=== PATIENT | male | born 1950 | race Caucasian/White ===

== ENCOUNTER 2017-02-05 11:42 | Inpatient (IN) | payer OTHER, MEDICARE ==
[~2017-02-05] VITALS: Ht 177.8 cm; Wt 91.0 kg
[2017-02-05] VITALS (18 sets, daily range): BP systolic 110–158; BP diastolic 56–103; PULSE 55–84; RESP 14–24; TEMP 97.8–98.9; O2SAT 96–100
[~2017-02-05 11:42] MED LIST: ATOR10 PO; BENZ100 PO; CARV3.125 PO; HYDRA25 PO; LASI20TA PO; METH500T3 PO; NORC10TA2 PO; PRAS10 PO; PREG75 PO; RAMI2.5 PO; ZOFR4TAB3 SL
--- NOTE | 2017-02-05 12:17 | PD ---
HPI . abnormal labs sent from PCP Chief Complaint: Abnormal Results Time Seen by Provider: 12:09 Travel History International Travel<30 days: No Contact w/Intl Traveler<30days: No Traveled to known affect area: No History of Present Illness HPI 66-year-old male with history of hypertension, hyperlipidemia and CAD with stents approximately one year ago sent to the ED by his primary care physician for abnormal labs. Patient is here complaining of shortness of breath and leg edema that has been present for several months. He also states that he has some abnormal labs, but is uncertain of what exactly those results were. He does report some weakness. He is a poor historian and has a very difficult time explaining what he is experiencing. On initial exam patient is pale. Upon further questioning he reports that he does have some dark colored stools. His last colonoscopy was when he was 50 years old. He has no other complaints. He is accompanied by his brother. PFSH Past Medical History Hx Anticoagulant Therapy: Yes Asthma: No Heart Rhythm Problems: No Cancer: No Cardiovascular Problems: Yes High Cholesterol: Yes Chest Pain: No Congestive Heart Failure: No COPD: No Diabetes: No Diminished Hearing: Yes Endocrine: No Glaucoma: No Genitourinary: No Hepatitis: No Hiatal Hernia: No Hypertension: Yes Immune Disorder: No Musculoskeletal: Yes (knee ankle) Neurologic: No Reproductive: No Respiratory: No Sleep Apnea: No Thyroid Disease: No Past Surgical History Appendectomy: Yes Pacemaker: No Other Surgery: Yes (right wrist sx) Social History Alcohol Use: Yes (BEER OCC) Tobacco Use: No Substance Use: No Allergies-Medications (Allergen,Severity, Reaction): Coded Allergies: No Known Allergies (Verified , 03/31/16) Reported Meds & Prescriptions Reported Meds & Active Scripts Active Lyrica (Pregabalin) 75 Mg Cap 75 Mg PO DAILY 30 Days Ramipril 2.5 Mg Cap 2.5 Mg PO DAILY Effient (Prasugrel) 10 Mg Tab 10 Mg PO DAILY Coreg 3.125 mg (Carvedilol) 3.125 Mg Tab 3.125 Mg PO BID Lipitor 10 mg tab (Atorvastatin) 10 Mg Tab 10 Mg PO HS Lasix (Furosemide) 20 Mg Tab 20 Mg PO DAILY 30 Days Tessalon Perles (Benzonatate) 100 Mg Cap 100 Mg PO TID PRN Zofran ODT (Ondansetron HCl) 4 Mg Tab 4 Mg SL Q6H PRN FOR NAUSEA/VOMITING Robaxin (Methocarbamol) 500 Mg Tab 500 Mg PO QID PRN Hydralazine HCl 25 Mg Tab 25 Mg PO Q8HR Reported [place] 10-325 mg (Hydrocodone-Acetaminophen 10-325 mg) 1 Tab 1 Tab PO Q4-6H PRN Review of Systems General / Constitutional: Positive: Other (fatigue), No: Fever Eyes: No: Visual changes HENT: No: Headaches Cardiovascular: No: Chest Pain or Discomfort Respiratory: Positive: Cough, Shortness of Breath Gastrointestinal: Positive: Other (melena), No: Abdominal Pain Genitourinary: No: Dysuria Musculoskeletal: No: Pain Skin: No Rash Neurologic: No: Weakness Psychiatric: No: Depression Endocrine: No: Polydipsia Hematologic/Lymphatic: No: Easy Bruising Physical Exam Narrative GENERAL: AAO x 3, no acute distress, Well-nourished, well-developed patient. SKIN: Warm and dry. No visible rashes or bruising. Pallor throughout. Bilateral lower extremities with multiple excoriations, no evidence of cellulitis. HEAD: Normocephalic and atraumatic. EYES: No scleral icterus. No injection or drainage. EOM intact, PERRLA. No lymphadenopathy. Conjunctiva is pale ENT: No nasal drainage noted. Mucous membranes with pallor. Airway patent. NECK: Supple, trachea midline. No JVD. CARDIOVASCULAR: Regular rate and rhythm without murmurs, gallops, or rubs. RESPIRATORY: Breath sounds equal bilaterally. No accessory muscle use. No rhonchi or rales. GASTROINTESTINAL: Abdomen soft, non-tender, nondistended. RECTAL: Guaiac is positive EXTREMITIES: No cyanosis. Bilateral lower extremities edema right greater than left. +1 in lower extremity on the right, trace in the left, diminished pedal pulses. BACK: Nontender without obvious deformity. No CVA tenderness. PSYCH: AAO x 3, normal affect. Data Data Last Documented VS Vital Signs Date Time Temp Pulse Resp B/P Pulse Ox O2 Delivery O2 Flow Rate FiO2 02/05/17 14:00 72 18 115/56 99 Nasal Cannula 2 02/05/17 12:11 97.9 Orders Electrocardiogram (02/05/17 ) Complete Blood Count With Diff (02/05/17 12:17) Comprehensive Metabolic Panel (02/05/17 12:17) Prothrombin Time / Inr (Pt) (02/05/17 12:17) Act Partial Throm Time (Ptt) (02/05/17 12:17) Type And Screen (02/05/17 12:17) Ecg Monitoring (02/05/17 12:17) Oximetry (02/05/17 12:17) Sodium Chloride 0.9% Flush (Ns Flush) (02/05/17 12:30) Red Blood Cells (Rbc) (02/05/17 13:11) Blood Product Administration .UPON TRANSFUSION (02/05/17 13:11) Sodium Chlor 0.9% 250 Ml Inj (Ns 250 Ml (02/05/17 13:15) Admit Order (Ed Use Only) (02/05/17 14:13) Admit To Inpatient (02/05/17 ) Inpatient Certification (02/05/17 ) Diet Npo (02/05/17 Dinner) Vital Signs (Adult) JEREMIAS.Q4H (02/05/17 14:13) Activity Bed Rest (02/05/17 14:13) Labs Laboratory Tests Test 02/05/17 02/05/17 02/05/17 12:30 13:11 13:53 White Blood Count 7.7 TH/MM3 Red Blood Count 2.27 MIL/MM3 Hemoglobin 5.6 GM/DL Hematocrit 18.0 % Mean Corpuscular Volume 79.5 FL Mean Corpuscular Hemoglobin 24.9 PG Mean Corpuscular Hemoglobin 31.3 % Concent Red Cell Distribution Width 17.7 % Platelet Count 220 TH/MM3 Mean Platelet Volume 9.5 FL Neutrophils (%) (Auto) 63.0 % Lymphocytes (%) (Auto) 22.6 % Monocytes (%) (Auto) 11.8 % Eosinophils (%) (Auto) 1.9 % Basophils (%) (Auto) 0.7 % Neutrophils # (Auto) 4.9 TH/MM3 Lymphocytes # (Auto) 1.7 TH/MM3 Monocytes # (Auto) 0.9 TH/MM3 Eosinophils # (Auto) 0.1 TH/MM3 Basophils # (Auto) 0.1 TH/MM3 CBC Comment AUTO DIFF Differential Comment AUTO DIFF CONFIRMED Prothrombin Time 11.4 SEC Prothromb Time International 1.0 RATIO Ratio Activated Partial 23.6 SEC Thromboplast Time Sodium Level 139 MEQ/L Potassium Level 4.0 MEQ/L Chloride Level 103 MEQ/L Carbon Dioxide Level 28.4 MEQ/L Anion Gap 8 MEQ/L Blood Urea Nitrogen 11 MG/DL Creatinine 0.82 MG/DL Estimat Glomerular Filtration 94 ML/MIN Rate Random Glucose 103 MG/DL Calcium Level 8.5 MG/DL Total Bilirubin 0.4 MG/DL Aspartate Amino Transf 18 U/L (AST/SGOT) Alanine Aminotransferase 26 U/L (ALT/SGPT) Alkaline Phosphatase 58 U/L Total Protein 6.3 GM/DL Albumin 3.3 GM/DL Blood Type A POSITIVE A POSITIVE Antibody Screen NEGATIVE Blood Bank Comment Crossmatch Leukocyte-Reduced Red Blood Cells MDM Medical Decision Making Medical Screen Exam Complete: Yes Emergency Medical Condition: Yes Medical Record Reviewed: Yes Differential Diagnosis GI bleed, less likely diverticulitis, CHF, Narrative Course 66-year-old male with history of hypertension, hyperlipidemia and CAD with stents approximately one year ago sent to the ED by his primary care physician for abnormal labs. Patient is here complaining of shortness of breath and leg edema that has been present for several months. He also states that he has some abnormal labs, but is uncertain of what exactly those results were. He does report some weakness. He is a poor historian and has a very difficult time explaining what he is experiencing. On initial exam patient is pale. Upon further questioning he reports that he does have some dark colored stools. His last colonoscopy was when he was 50 years old. He has no other complaints. He is accompanied by his brother. Patient seen and examined. Case discussed with Dr. Mayberry. Patient appears to have a GI bleed. Workup in progress. Guaiac was positive. Labs are back and he has a significantly low hemoglobin and hematocrit. Transfuse 2 units of packed red blood cells in the ED. Patient will need a full workup including colonoscopy. Laboratory Tests Test 02/05/17 02/05/17 02/05/17 12:30 13:11 13:53 White Blood Count 7.7 TH/MM3 Red Blood Count 2.27 MIL/MM3 Hemoglobin 5.6 GM/DL Hematocrit 18.0 % Mean Corpuscular Volume 79.5 FL Mean Corpuscular Hemoglobin 24.9 PG Mean Corpuscular Hemoglobin 31.3 % Concent Red Cell Distribution Width 17.7 % Platelet Count 220 TH/MM3 Mean Platelet Volume 9.5 FL Neutrophils (%) (Auto) 63.0 % Lymphocytes (%) (Auto) 22.6 % Monocytes (%) (Auto) 11.8 % Eosinophils (%) (Auto) 1.9 % Basophils (%) (Auto) 0.7 % Neutrophils # (Auto) 4.9 TH/MM3 Lymphocytes # (Auto) 1.7 TH/MM3 Monocytes # (Auto) 0.9 TH/MM3 Eosinophils # (Auto) 0.1 TH/MM3 Basophils # (Auto) 0.1 TH/MM3 CBC Comment AUTO DIFF Differential Comment AUTO DIFF CONFIRMED Prothrombin Time 11.4 SEC Prothromb Time International 1.0 RATIO Ratio Activated Partial 23.6 SEC Thromboplast Time Sodium Level 139 MEQ/L Potassium Level 4.0 MEQ/L Chloride Level 103 MEQ/L Carbon Dioxide Level 28.4 MEQ/L Anion Gap 8 MEQ/L Blood Urea Nitrogen 11 MG/DL Creatinine 0.82 MG/DL Estimat Glomerular Filtration 94 ML/MIN Rate Random Glucose 103 MG/DL Calcium Level 8.5 MG/DL Total Bilirubin 0.4 MG/DL Aspartate Amino Transf 18 U/L (AST/SGOT) Alanine Aminotransferase 26 U/L (ALT/SGPT) Alkaline Phosphatase 58 U/L Total Protein 6.3 GM/DL Albumin 3.3 GM/DL Blood Type A POSITIVE A POSITIVE Antibody Screen NEGATIVE Blood Bank Comment Crossmatch Leukocyte-Reduced Red Blood Cells Discussed with Dr. Bradshaw. She has accepted him for admission. She also states that she will request a gastroenterology consult. Diagnosis Primary Impression: GI (gastrointestinal bleed) Qualified Code: K92.1 - Gastrointestinal hemorrhage with melena Admitting Information Admitting Physician Requests: Admit Condition: Stable Aileen Rdz Feb 05, 2017 12:17
[2017-02-05 12:58] LABS: AUTOMATED NEUTROPHIL # 4.9 TH/MM3 (1.8-7.7); BASOPHIL # 0.1 TH/MM3 (0-0.2); BASOPHIL % 0.7 % (0.0-2.0); EOSINOPHIL # 0.1 TH/MM3 (0-0.4); EOSINOPHIL % 1.9 % (0.0-4.0); LYMPH % 22.6 % (9.0-44.0); LYMPHOCYTE # 1.7 TH/MM3 (1.0-4.8); MEAN CELL VOLUME 79.5 FL (80.0-100.0); MEAN CORPUSCULAR HEMOGLOBIN 24.9 PG (27.0-34.0); MEAN CORPUSCULAR HGB CONC 31.3 % (32.0-36.0); MONO % 11.8 % (0.0-8.0); PLATELET COUNT 220 TH/MM3 (150-450); RED BLOOD COUNT 2.27 MIL/MM3 (4.50-5.90); RED CELL DISTRIBUTION WIDTH 17.7 % (11.6-17.2); WHITE BLOOD COUNT 7.7 TH/MM3 (4.0-11.0)
[2017-02-05 13:02] LABS: HEMO FLAGS AUTO DIFF
[2017-02-05 13:09] LABS: APTT (PATIENT) 23.6 SEC (24.3-30.1); PROTHROMBIN TIME - PATIENT 11.4 SEC (9.8-11.6)
[2017-02-05] MEDS ORDERED: SODIUM CHLOR 0.9% 250 ML INJ 250 ML IV ONE (13:15)
[2017-02-05 13:21] LABS: ALT (GPT) 26 U/L (12-78); ANION GAP 8 MEQ/L (5-15); AST (GOT) 18 U/L (15-37); BICARBONATE 28.4 MEQ/L (21.0-32.0); BLOOD UREA NITROGEN 11 MG/DL (7-18); CHLORIDE 103 MEQ/L (98-107); GLOMERULAR FILTRATION RATE 94 ML/MIN (>89); SODIUM (NA) 139 MEQ/L (136-145)
[2017-02-05 13:24] LABS: ALKALINE PHOSPHATASE 58 U/L (45-117); TOTAL BILIRUBIN ADULT 0.4 MG/DL (0.2-1.0)
[2017-02-05 13:31] LABS: SCAN/DIFF AUTO DIFF CONFIRMED
--- NOTE | 2017-02-05 13:40 | PD ---
Data Data Last Documented VS Vital Signs Date Time Temp Pulse Resp B/P Pulse Ox O2 Delivery O2 Flow Rate FiO2 02/05/17 14:00 72 18 115/56 99 Nasal Cannula 2 02/05/17 12:11 97.9 Orders Electrocardiogram (02/05/17 ) Complete Blood Count With Diff (02/05/17 12:17) Comprehensive Metabolic Panel (02/05/17 12:17) Prothrombin Time / Inr (Pt) (02/05/17 12:17) Act Partial Throm Time (Ptt) (02/05/17 12:17) Type And Screen (02/05/17 12:17) Ecg Monitoring (02/05/17 12:17) Oximetry (02/05/17 12:17) Sodium Chloride 0.9% Flush (Ns Flush) (02/05/17 12:30) Red Blood Cells (Rbc) (02/05/17 13:11) Blood Product Administration .UPON TRANSFUSION (02/05/17 13:11) Sodium Chlor 0.9% 250 Ml Inj (Ns 250 Ml (02/05/17 13:15) Admit Order (Ed Use Only) (02/05/17 14:13) Admit To Inpatient (02/05/17 ) Inpatient Certification (02/05/17 ) Vital Signs (Adult) JEREMIAS.Q4H (02/05/17 14:13) Activity Bed Rest (02/05/17 14:13) Labs Laboratory Tests Test 02/05/17 02/05/17 02/05/17 12:30 13:11 13:53 White Blood Count 7.7 TH/MM3 Red Blood Count 2.27 MIL/MM3 Hemoglobin 5.6 GM/DL Hematocrit 18.0 % Mean Corpuscular Volume 79.5 FL Mean Corpuscular Hemoglobin 24.9 PG Mean Corpuscular Hemoglobin 31.3 % Concent Red Cell Distribution Width 17.7 % Platelet Count 220 TH/MM3 Mean Platelet Volume 9.5 FL Neutrophils (%) (Auto) 63.0 % Lymphocytes (%) (Auto) 22.6 % Monocytes (%) (Auto) 11.8 % Eosinophils (%) (Auto) 1.9 % Basophils (%) (Auto) 0.7 % Neutrophils # (Auto) 4.9 TH/MM3 Lymphocytes # (Auto) 1.7 TH/MM3 Monocytes # (Auto) 0.9 TH/MM3 Eosinophils # (Auto) 0.1 TH/MM3 Basophils # (Auto) 0.1 TH/MM3 CBC Comment AUTO DIFF Differential Comment AUTO DIFF CONFIRMED Prothrombin Time 11.4 SEC Prothromb Time International 1.0 RATIO Ratio Activated Partial 23.6 SEC Thromboplast Time Sodium Level 139 MEQ/L Potassium Level 4.0 MEQ/L Chloride Level 103 MEQ/L Carbon Dioxide Level 28.4 MEQ/L Anion Gap 8 MEQ/L Blood Urea Nitrogen 11 MG/DL Creatinine 0.82 MG/DL Estimat Glomerular Filtration 94 ML/MIN Rate Random Glucose 103 MG/DL Calcium Level 8.5 MG/DL Iron Level 14 MCG/DL Total Iron Binding Capacity 419 MCG/DL Percent Iron Saturation 3.3 % Ferritin 6 NG/ML Total Bilirubin 0.4 MG/DL Aspartate Amino Transf 18 U/L (AST/SGOT) Alanine Aminotransferase 26 U/L (ALT/SGPT) Alkaline Phosphatase 58 U/L Total Protein 6.3 GM/DL Albumin 3.3 GM/DL Vitamin B12 Level 858 PG/ML Folate 16.2 NG/ML Blood Type A POSITIVE A POSITIVE Antibody Screen NEGATIVE Blood Bank Comment Crossmatch Leukocyte-Reduced Red Blood Cells MDM Supervised Visit with MARGARITO: Yes Narrative Course I, Dr. Mayberry, have reviewed the advance practice practitioner's documentation and am in agreement, met with the patient face to face, made the diagnosis, and the medical decision making was done by me. *My assessment and Findings: Patient is a 66-year-old male who presents emergency Department with dark stools. Per MARGARITO patient had brown stool with her she is Hemoccult positive. No gross melena no gross blood. Hemoglobin was 5 and change. He has been counseled by me and respect his competitions and alternatives of blood transfusion and agrees for blood transfusion. Consents were signed and he was ordered for 2 units PRBCs. Will be admitted for further evaluation workup. Hemodynamic stable this time. Diagnosis Primary Impression: GI (gastrointestinal bleed) Qualified Code: K92.1 - Gastrointestinal hemorrhage with melena Admitting Information Admitting Physician Requests: Admit Condition: Stable Balwinder Mayberry MD Feb 05, 2017 13:40
[2017-02-05] MEDS ORDERED: PANTOPRAZOLE SODIUM 40 MG VIAL IV PUSH SCH (15:00)
[2017-02-05 15:21] LABS: TRANSFERRIN IRON PROFILE 299 MG/DL (200-360)
[2017-02-05 15:46] LABS: FERRITIN 6 NG/ML (26-388)
[2017-02-05] MEDS: SODIUM CHLORIDE 0.9% FLUSH 5 ML FLUSH IVF PRN ×2 (15:47→18:23)
[2017-02-05] MEDS ORDERED: PRAV80TA2 PO (15:54)
[2017-02-05] MEDS ORDERED: FURO1TAB60 PO (15:54)
[2017-02-05] MEDS ORDERED: ASPI81CH CHEW (15:54)
[2017-02-05] MEDS ORDERED: GABA300C5 PO (15:54)
--- NOTE | 2017-02-05 16:15 | PD.CONS ---
HPI History of Present Illness This is a 66 year old who was referred to the ER by his primary care physician for evaluation of severe anemia. He reports that he has never been told that he was anemic in the past. He has been having some mild shortness of breath on exertion, generalized fatigue, and swelling of his bilateral lower extremities for the past several weeks. His symptoms are aggravated by exertion and improve with rest. He has not seen any obvious blood loss. He denies any changes in appetite, weight loss, vomiting, abdominal pain, or hematochezia. He has had some mild nausea without vomiting for a few weeks. He also reports that his stool has been darker than normal- although still brown in color. He does get heartburn once or twice a day and will take an [place] Plus for this and reports that this will take care of it. He has a hx of CAD and had a cardiac catheterization with stent placement about a year ago and is on effient and aspirin. He last took this around 8am this morning. He does not take any ibuprofen or aleve. He does drink 2-3 beers per day. He reports that he had a colonoscopy about 2-3 years ago at this facility, but I cannot find the records of this. He reports that he had a polyp removed at that time. (Charu So) PFSH Past Medical History Coronary artery disease GERD Hypertension Hyperlipidemia Arthritis Past Surgical History Right patellar removal Appendectomy L hand surgery Colonoscopy (Charu So) Coded Allergies: No Known Allergies (Verified , 03/31/16) Medications Allergies Coded Allergies Type Severity Reaction Last Updated Verified No Known Allergies 03/31/16 Yes Active Scripts Medications Dose Route/Sig Days Date Category Aspirin 81 Mg Chew 81 Mg CHEW DAILY 02/05/17 Reported Lasix (Furosemide) 40 Mg Tab 40 Mg PO DAILY 02/05/17 Reported Gabapentin 300 Mg Cap 300 Mg PO TID 02/05/17 Reported Pravastatin 80 Mg Tab 80 Mg PO DAILY 02/05/17 Reported Effient (Prasugrel) 10 Mg Tab 10 Mg PO DAILY 04/03/16 Rx Coreg 3.125 mg (Carvedilol) 3.125 Mg Tab 3.125 Mg PO BID 04/03/16 Rx Lipitor 10 mg tab (Atorvastatin) 10 Mg Tab 10 Mg PO HS 04/03/16 Rx Lasix (Furosemide) 20 Mg Tab 20 Mg PO DAILY 30 03/31/16 Rx [place] 10-325 mg (Hydrocodone-Acetaminophen 10-325 mg) 1 Tab 1 Tab PO Q4-6H PRN 03/25/16 Reported Family History Mother from COPD. Father from [place]. Denies any family hx of esophageal, gastric, or colorectal cancer. Social History Never smoked tobacco. Drinks 2-3 beers per day (Charu So) Review of Systems Constitutional: COMPLAINS OF: Fatigue, DENIES: Weight loss, Change in appetite Respiratory: DENIES: Cough Cardiovascular: COMPLAINS OF: Lower Extremity Edema, DENIES: Chest pain Gastrointestinal: COMPLAINS OF: Black stools, Nausea, Heartburn, DENIES: Abdominal pain, Bloody stools, Constipation, Diarrhea, Vomiting, Difficulty Swallowing, Anorexia, Swelling of Abdomen, Hematemesis Musculoskeletal: COMPLAINS OF: Muscle aches Hematologic/lymphatic: DENIES: Bruising Neurologic: DENIES: Headache Psychiatric: DENIES: Confusion (Charu So) GI Exam Vitals I&O Vital Signs Date Time Temp Pulse Resp B/P Pulse Ox O2 Delivery O2 Flow Rate FiO2 02/05/17 15:15 98.6 66 20 145/73 96 Room Air 02/05/17 15:00 98.9 55 20 135/63 Nasal Cannula 2 02/05/17 14:00 72 18 115/56 99 Nasal Cannula 2 02/05/17 13:00 72 17 110/56 97 Room Air 02/05/17 12:11 Room Air 02/05/17 12:11 97.9 72 24 125/60 99 Room Air 02/05/17 12:11 97.9 72 24 125/60 99 Room Air 02/05/17 11:43 97.9 74 14 129/62 100 Room Air Laboratory Test 02/05/17 02/05/17 02/05/17 02/05/17 12:30 13:11 13:53 14:16 White Blood Count 7.7 TH/MM3 Red Blood Count 2.27 MIL/MM3 Hemoglobin 5.6 GM/DL Hematocrit 18.0 % Mean Corpuscular Volume 79.5 FL Mean Corpuscular Hemoglobin 24.9 PG Mean Corpuscular Hemoglobin 31.3 % Concent Red Cell Distribution Width 17.7 % Platelet Count 220 TH/MM3 Mean Platelet Volume 9.5 FL Neutrophils (%) (Auto) 63.0 % Lymphocytes (%) (Auto) 22.6 % Monocytes (%) (Auto) 11.8 % Eosinophils (%) (Auto) 1.9 % Basophils (%) (Auto) 0.7 % Neutrophils # (Auto) 4.9 TH/MM3 Lymphocytes # (Auto) 1.7 TH/MM3 Monocytes # (Auto) 0.9 TH/MM3 Eosinophils # (Auto) 0.1 TH/MM3 Basophils # (Auto) 0.1 TH/MM3 CBC Comment AUTO DIFF Differential Comment AUTO DIFF CONFIRMED Prothrombin Time 11.4 SEC Prothromb Time International 1.0 RATIO Ratio Activated Partial 23.6 SEC Thromboplast Time Sodium Level 139 MEQ/L Potassium Level 4.0 MEQ/L Chloride Level 103 MEQ/L Carbon Dioxide Level 28.4 MEQ/L Anion Gap 8 MEQ/L Blood Urea Nitrogen 11 MG/DL Creatinine 0.82 MG/DL Estimat Glomerular Filtration 94 ML/MIN Rate Random Glucose 103 MG/DL Calcium Level 8.5 MG/DL Iron Level 14 MCG/DL Total Iron Binding Capacity 419 MCG/DL Percent Iron Saturation 3.3 % Ferritin 6 NG/ML Total Bilirubin 0.4 MG/DL Aspartate Amino Transf 18 U/L (AST/SGOT) Alanine Aminotransferase 26 U/L (ALT/SGPT) Alkaline Phosphatase 58 U/L Total Protein 6.3 GM/DL Albumin 3.3 GM/DL Vitamin B12 Level 858 PG/ML Folate 16.2 NG/ML Blood Type A POSITIVE A POSITIVE Antibody Screen NEGATIVE Blood Bank Comment Crossmatch Leukocyte-Reduced Leukocyte-Reduced Red Blood Red Blood Cells Cells Physical Examination HEENT: Normocephalic; atraumatic; no jaundice. CHEST: CTA CARDIAC: RRR ABDOMEN: Soft, nondistended, nontender; no hepatosplenomegaly; bowel sounds are present in all four quadrants. EXTREMITIES: BLE edema. SKIN: Dry scabs to ble DIPPER AND DRIER: No focal deficits; alert and oriented times three. (Charu So) Assessment and Plan Plan ASSESSMENT: - Severe anemia with hemoccult positive stool. Pt has had worsening fatigue, sob on exertion. He has not had any obvious blood loss, although he has had some nausea and frequent GERD and reports that his stool has been a darker colored brown than usual. He has CAD and hx of stent placement and takes Effient/ASA- last had this am. He does not take Ibuprofen/Aleve, but does drink 2-3 beers per day and takes [place] as needed for his GERD symptoms. He reports that he had a colonoscopy 2-3 years ago and that he had a polyp removed, but he does not recall who did this. He says it was done here, although I do not see any records of this. HH 5.6/18.0. On 2nd unit of PRBC. Protonix 40mg IV daily ordered. NPO. - Nausea, GERD with daily symptoms. Pt has been taking [place] as needed for this. - CAD with hx of stent placement, on Effient and ASA- last had this today. - HTN, Hyperlipidemia, Arthritis. Per primary. PLAN: - Plan for egd/colonoscopy in am - Obtain consents - Clear liquids - NPO after MN - Golytely prep - Change Protonix to 40mg IV BID - Monitor HH - Transfuse as necessary - Hold effient for now - Supportive care - Further recommendations to follow based on results of above - Pt seen and examined by Dr. Manuel and myself and this note is written on his behalf (Charu So) Physician Comments Seen and examined with HANH, no active bleeding , symptomatic microcytic anemia. On blood thinners. EGD/Colonoscopy planned for tomorrow. HOld anticoagulation for now. Thank you (Dolores Manuel MD) Charu So Feb 05, 2017 16:15 Dolores Manuel MD Feb 05, 2017 21:07
[2017-02-05] MEDS ORDERED: PEG (High)/E-LYTE SOLN 4000 ML BTL PO ONE (17:00)
--- NOTE | 2017-02-05 17:27 | HHI.HP ---
[facility] Damien Jacobs, DO Admission Diagnosis GI BLEED Diagnoses: Chief Complaint: Generalized weakness Travel History International Travel<30 Days: No Contact w/Intl Traveler <30 Da: No Traveled to Known Affected Are: No History of Present Illness Patient is a very pleasant 66-year-old male with history of hypertension, CAD status post stents 2 year ago for the past 1-1/2 weeks now has been feeling fatigued. He also complained of dark black stools for about a month occasional epigastric/abdominal discomfort. Bowel movements usually is once a day and he has noted it to be "almost black". He denies taking any Motrin/naproxen/more aerobic/Advil. he takes aspirin and Effiant for CAD. He went to his primary care physician where on CBC showed a hemoglobin of 4.7. He was called and was promptly told to come to the emergency room and is now admitted for further evaluation and management. Review of Systems Constitutional: COMPLAINS OF: Fatigue Endocrine: DENIES: Heat/cold intolerance, Polydipsia, Polyuria, Polyphagia Eyes: DENIES: Blurred vision, Diplopia, Eye inflammation, Eye pain, Vision loss , Photosensitivity, Double Vision Ears, nose, mouth, throat: DENIES: Tinnitus, Hearing loss, Vertigo, Nasal discharge, Oral lesions, Throat pain, Hoarseness, Ear Pain, Running Nose, Epistaxis, Sinus Pain, Toothache, Odynophagia Respiratory: DENIES: Apneas, Cough, Snoring, Wheezing, Hemoptysis, Sputum production, Shortness of breath Cardiovascular: COMPLAINS OF: Dyspnea on Exertion, DENIES: Chest pain, Palpitations, Syncope, PND, Lower Extremity Edema, Orthopnea, Claudication Gastrointestinal: COMPLAINS OF: Abdominal pain, Black stools Genitourinary: DENIES: Sexual dysfunction, Urinary frequency, Urinary incontinence, Urgency, Hematuria, Dysuria, Nocturia, Penile Discharge, Testicular Pain, Testicular Swelling Musculoskeletal: DENIES: Joint pain, Muscle aches, Stiffness, Joint Swelling, Back pain, Neck pain Integumentary: DENIES: Abnormal pigmentation, Nail changes, Pruritus, Rash Hematologic/lymphatic: DENIES: Bruising, Lymphadenopathy Immunologic/allergic: DENIES: Eczema, Urticaria Neurologic: DENIES: Abnormal gait, Headache, Localized weakness, Paresthesias, Seizures, Speech Problems, Tremor, Poor Balance Psychiatric: DENIES: Anxiety, Confusion, Mood changes, Depression, Hallucinations, Agitation, Suicidal Ideation, Homicidal Ideation, Delusions Past Family Social History Past Medical History Coronary artery disease 2 stents a year ago Hypertension Hyperlipidemia Past Surgical History Right patellar removal Appendectomy L hand surgery Colonoscopy - many years ago shows polyps Reported Medications Gabapentin 300 mg 3 times a day Furosemide 20 mg daily effiant 10 mg daily 8 atorvastatin 40 mg daily Hydrocodone 10/325 mg by mouth every 6 when necessary for pain Aspirin 81 mg daily Pravastatin 20 mg at bedtime Carvedilol 12.5 mg twice a Allergies: Coded Allergies: No Known Allergies (Verified , 03/31/16) Family History Mother from COPD. Father from [place]. Denies any family hx of esophageal, gastric, or colorectal cancer. Social History Never smoked tobacco. Drinks 2-3 beers per day Physical Exam Vital Signs Vital Signs Date Time Temp Pulse Resp B/P Pulse Ox O2 Delivery O2 Flow Rate FiO2 02/05/17 15:15 98.6 66 20 145/73 96 Room Air 02/05/17 15:00 98.9 55 20 135/63 Nasal Cannula 2 02/05/17 14:00 72 18 115/56 99 Nasal Cannula 2 02/05/17 13:00 72 17 110/56 97 Room Air 02/05/17 12:11 Room Air 02/05/17 12:11 97.9 72 24 125/60 99 Room Air 02/05/17 12:11 97.9 72 24 125/60 99 Room Air 02/05/17 11:43 97.9 74 14 129/62 100 Room Air Physical Exam GENERAL: This is a well-nourished, well-developed patient, in no apparent distress. SKIN: No rashes, ecchymoses or lesions. Cool and dry. HEAD: Atraumatic. Normocephalic. No temporal or scalp tenderness. EYES: Pupils equal round and reactive. Extraocular motions intact. No scleral icterus. No injection or drainage. ENT: Nose without bleeding, purulent drainage or septal hematoma. Throat without erythema, tonsillar hypertrophy or exudate. Uvula midline. Airway patent. NECK: Trachea midline. No JVD or lymphadenopathy. Supple, nontender, no meningeal signs. CARDIOVASCULAR: Regular rate and rhythm without murmurs, gallops, or rubs. RESPIRATORY: Clear to auscultation. Breath sounds equal bilaterally. No wheezes , rales, or rhonchi. GASTROINTESTINAL: Abdomen soft, non-tender, nondistended. No hepato-splenomegaly , or palpable masses. No guarding. MUSCULOSKELETAL: Extremities without clubbing, cyanosis, or edema. No joint tenderness, effusion, or edema noted. No calf tenderness. Negative Homans sign bilaterally. NEUROLOGICAL: Awake and alert. Cranial nerves II through XII intact. Motor and sensory grossly within normal limits. Five out of 5 muscle strength in all muscle groups. Normal speech. Laboratory Laboratory Tests Test 02/05/17 02/05/17 02/05/17 02/05/17 12:30 13:11 13:53 14:16 White Blood Count 7.7 Red Blood Count 2.27 Hemoglobin 5.6 Hematocrit 18.0 Mean Corpuscular Volume 79.5 Mean Corpuscular Hemoglobin 24.9 Mean Corpuscular Hemoglobin 31.3 Concent Red Cell Distribution Width 17.7 Platelet Count 220 Mean Platelet Volume 9.5 Neutrophils (%) (Auto) 63.0 Lymphocytes (%) (Auto) 22.6 Monocytes (%) (Auto) 11.8 Eosinophils (%) (Auto) 1.9 Basophils (%) (Auto) 0.7 Neutrophils # (Auto) 4.9 Lymphocytes # (Auto) 1.7 Monocytes # (Auto) 0.9 Eosinophils # (Auto) 0.1 Basophils # (Auto) 0.1 CBC Comment AUTO DIFF Differential Comment AUTO DIFF CONFIRMED Prothrombin Time 11.4 Prothromb Time International 1.0 Ratio Activated Partial 23.6 Thromboplast Time Sodium Level 139 Potassium Level 4.0 Chloride Level 103 Carbon Dioxide Level 28.4 Anion Gap 8 Blood Urea Nitrogen 11 Creatinine 0.82 Estimat Glomerular Filtration 94 Rate Random Glucose 103 Calcium Level 8.5 Iron Level 14 Total Iron Binding Capacity 419 Percent Iron Saturation 3.3 Ferritin 6 Total Bilirubin 0.4 Aspartate Amino Transf 18 (AST/SGOT) Alanine Aminotransferase 26 (ALT/SGPT) Alkaline Phosphatase 58 Total Protein 6.3 Albumin 3.3 Vitamin B12 Level 858 Folate 16.2 Blood Type A POSITIVE A POSITIVE Antibody Screen NEGATIVE Blood Bank Comment Crossmatch Leukocyte-Reduced Leukocyte-Reduced Red Blood Red Blood Cells Cells Result Diagram: 02/05/17 1230 02/05/17 1230 Assessment and Plan Assessment and Plan 66-year-old male presenting with generalized weakness secondary to Severe anemia secondary to GI bleeding Check iron stores Transfuse 2 units packed RBC to keep hemoglobin above 10 with history of CAD repeat H and H 3 hours post BT Always have 2 units packed RBC standby Protonix 40 mg IV daily GI consulted Nothing by mouth post midnight for possible scope History of CAD status post stent 2 Chronic leg swelling Will hold off on aspirin and Effiant and for now may need to call his director of sustainability for evaluation and recommendation Continue on Coreg 12.5 mg twice a Continue on statins Lasix 10 mg IV in between 2 units Arthritis continue on when necessary pain meds No chemical prophylaxis secondary to GI bleed Physician Certification 2 Midnight Certification Type: Admission for Inpatient Services Order for Inpatient Services The services are ordered in accordance with Medicare regulations or non- Medicare payer requirements, as applicable. In the case of services not specified as inpatient-only, they are appropriately provided as inpatient services in accordance with the 2-midnight benchmark. Estimated LOS (days): 3 3 days is the estimated time the patient will need to remain in the hospital, assuming treatment plan goals are met and no additional complications. Post-Hospital Plan: Not yet determined Juan Bradshaw MD Feb 05, 2017 17:27
[2017-02-05] MEDS ORDERED: FUROSEMIDE 20 MG/2 ML VIAL IV PUSH ONE (18:00)
[2017-02-05] MEDS: GABAPENTIN 300 MG CAP PO SCH (18:22)
[2017-02-05] MEDS: ACETAMINOPHEN/HYDROcodone 325 MG/10 MG TAB PO PRN (18:23)
--- NOTE | 2017-02-05 18:37 | RADRPT ---
EXAM DATE/TIME: 02/05/2017 18:22 [place] COMPARISON: CHEST SINGLE AP, March 31, 2016, 21:18. INDICATIONS : Short of breath. MEDICAL HISTORY : None. SURGICAL HISTORY : None. ENCOUNTER: Initial ACUITY: 1 day PAIN SCORE: 0/10 LOCATION: Bilateral chest FINDINGS: A single view of the chest demonstrates the lungs to be symmetrically aerated without evidence of mas s, infiltrate or effusion. The cardiomediastinal contours are unremarkable. Osseous structures are intact. CONCLUSION: No acute disease. Alexis Pfeiffer MD on February 05, 2017 at 18:36 Board Certified Radiologist. This report was verified electronically.
[2017-02-05] MEDS: PANTOPRAZOLE SODIUM 40 MG VIAL IV PUSH SCH (21:21)
[2017-02-05] MEDS: CARVEDILOL 3.125 MG TAB PO SCH (21:21)
[2017-02-05] MEDS: ATORVASTATIN 10 MG TAB PO SCH (21:21)
[2017-02-06] VITALS (31 sets, daily range): BP systolic 135–159; BP diastolic 68–83; PULSE 59–84; RESP 15–18; TEMP 97.6–98.4; O2SAT 95–100
[2017-02-06] MEDS ORDERED: INSULIN HUMAN REGULAR 1,000 UNITS/10 ML VIAL SQ PRN (00:15)
[2017-02-06] MEDS ORDERED: SODIUM CHLORID 0.9% 500 ML IV SCH (00:15)
[2017-02-06] MEDS: ACETAMINOPHEN/HYDROcodone 325 MG/10 MG TAB PO PRN ×4 (00:24→21:19)
[2017-02-06 00:50] LABS: HEMATOCRIT 23.9 % (39.0-51.0)
[2017-02-06 06:57] LABS: AUTOMATED NEUTROPHIL # 4.4 TH/MM3 (1.8-7.7); BASOPHIL # 0.1 TH/MM3 (0-0.2); BASOPHIL % 1.1 % (0.0-2.0); EOSINOPHIL # 0.4 TH/MM3 (0-0.4); EOSINOPHIL % 5.2 % (0.0-4.0); HEMATOCRIT 23.9 % (39.0-51.0); HEMO FLAGS DIFF FINAL; LYMPH % 21.8 % (9.0-44.0); LYMPHOCYTE # 1.6 TH/MM3 (1.0-4.8); MEAN CELL VOLUME 80.2 FL (80.0-100.0); MEAN CORPUSCULAR HEMOGLOBIN 26.6 PG (27.0-34.0); MEAN CORPUSCULAR HGB CONC 33.1 % (32.0-36.0); MONO % 11.2 % (0.0-8.0); NEUT % 60.7 % (16.0-70.0); PLATELET COUNT 206 TH/MM3 (150-450); RED BLOOD COUNT 2.97 MIL/MM3 (4.50-5.90); RED CELL DISTRIBUTION WIDTH 16.8 % (11.6-17.2); WHITE BLOOD COUNT 7.2 TH/MM3 (4.0-11.0)
[2017-02-06 07:15] LABS: BICARBONATE 27.3 MEQ/L (21.0-32.0); POTASSIUM 3.6 MEQ/L (3.5-5.1)
[2017-02-06] MEDS: PANTOPRAZOLE SODIUM 40 MG VIAL IV PUSH SCH ×2 (09:13→21:16)
[2017-02-06] MEDS: CARVEDILOL 3.125 MG TAB PO SCH (09:13)
[2017-02-06] MEDS: LACTATED RINGER'S 1000 ML IV SCH (09:13)
[2017-02-06] MEDS: GABAPENTIN 300 MG CAP PO SCH ×3 (09:13→17:18)
--- NOTE | 2017-02-06 09:28 | HHI.PR ---
Subjective Remarks no complains overnight stools overnight from prep- - borwn stools no abdominal pain Objective Vitals Vital Signs Date Time Temp Pulse Resp B/P Pulse Ox O2 Delivery O2 Flow Rate FiO2 02/06/17 07:44 60 02/06/17 06:01 62 02/06/17 05:07 64 02/06/17 04:34 98.2 66 16 154/83 95 02/06/17 04:05 61 02/06/17 03:35 98.0 67 16 150/80 100 02/06/17 03:15 62 02/06/17 02:00 59 02/06/17 02:00 98.3 68 16 135/71 97 02/06/17 01:45 98.3 63 16 146/75 97 02/06/17 01:09 64 02/06/17 00:00 69 02/05/17 23:35 97.8 55 18 150/82 99 02/05/17 23:16 62 02/05/17 23:00 69 02/05/17 22:00 66 02/05/17 21:30 98.2 70 16 142/71 98 02/05/17 21:00 74 02/05/17 20:00 98.6 70 16 133/71 98 02/05/17 20:00 68 02/05/17 20:00 99 Room Air 02/05/17 19:53 66 02/05/17 19:00 70 02/05/17 18:41 98.7 71 18 158/85 98 02/05/17 18:41 98 Room Air 02/05/17 18:01 98.7 69 20 138/84 96 02/05/17 16:30 64 15 138/67 98 Room Air 02/05/17 15:15 98.6 66 20 145/73 96 Room Air 02/05/17 15:00 98.9 55 20 135/63 Nasal Cannula 2 02/05/17 14:00 72 18 115/56 99 Nasal Cannula 2 02/05/17 13:00 72 17 110/56 97 Room Air 02/05/17 12:11 Room Air 02/05/17 12:11 97.9 72 24 125/60 99 Room Air 02/05/17 12:11 97.9 72 24 125/60 99 Room Air 02/05/17 11:43 97.9 74 14 129/62 100 Room Air I/O 02/05/17 02/05/17 02/05/17 02/06/17 02/06/17 02/06/17 07:00 15:00 23:00 07:00 15:00 23:00 Intake Total 2851 ml Balance 2851 ml Intake Oral 2240 ml Packed Cells 611 ml # Voids 4 # Bowel Movements 4 Result Diagram: 02/06/17 0555 02/06/17 0555 Imaging Last Impressions Chest X-Ray 02/05/17 0000 Signed Impressions: Service Date/Time: Sunday, February 05, 2017 18:22 - CONCLUSION: No acute disease. Alexis Pfeiffer MD Objective Remarks anicteric sclerae lungs clear regular rhythm abdomen soft, nontender extremities no edema neuro exam- unremarkable A/P Assessment and Plan 66-year-old male presenting with generalized weakness secondary to Severe anemia secondary to GI bleeding Iron deficiency- low Iron stores Give IV Venofer 200 mg x 1 today S.P 2 units H and H up to 7.9 give another unit RBC today Always have 2 units packed RBC standby Protonix 40 mg IV GI ff- for panendoscopy today CBC in am History of CAD status post stent 2 Chronic leg swelling Will hold off on aspirin and Effiant- consult his cardiology- stents- known to Dr. Jackson- re: OAC Continue on Coreg 12.5 mg twice a day Continue on statins Arthritis continue on when necessary pain meds No chemical prophylaxis secondary to GI bleed Juan Bradshaw MD Feb 06, 2017 09:28
[2017-02-06] MEDS ORDERED: PNEUMOCOCCAL POLYVALENT INJ 25 MCG/0.5 ML SYR IM ONE (10:00)
[2017-02-06] MEDS ORDERED: INFLUENZA VIRUS VACCINE (QUADRIVALENT) 0.5 ML SYR IM ONE (10:00)
[2017-02-06] MEDS ORDERED: PROPOFOL 200 MG/20 ML AMP IV ONE (11:11)
--- NOTE | 2017-02-06 12:21 | GIPROC ---
[facility] [address] [facility]. [facility], [address] EGD PROCEDURE REPORT EXAM DATE: 02/06/2017 PATIENT NAME: Edouard Sandoval MR #: [id number] BIRTHDATE: 1950 ATTENDING: Dolores Manuel MD ORDER #: [id number] SYNCHRO ASSEMBLER: Daniel Reyez and Josette Burns STATUS: inpatient INDICATIONS: The patient is a 66 yr old male here for an EGD due to iron deficiency anemia PROCEDURE PERFORMED: EGD w/ biopsy MEDICATIONS: None and Per Anesthesia. TOPICAL ANESTHETIC: CONSENT: The patient understands the risks and benefits of the procedure and understands that these risks include, but are not limited to: sedation, allergic reaction, infection, perforation and/or bleeding. Alternative means of evaluation and treatment include, among others: physical exam, x-rays, and/or surgical intervention. The patient elects to proceed with this endoscopic procedure. medical equipment was checked for proper function. Hand hygiene and appropriate measures for infection prevention was taken. After the risks, benefits and alternatives of the procedure were thoroughly explained, Informed consent was verified, confirmed and timeout was successfully executed by the treatment team. The patient was anesthetized with topical anesthesia and the EC-3490Li (Pedi C) endoscope was introduced through the mouth and advanced to the second portion of the duodenum. Retroflexed views revealed no abnormalities The gastroscope was then slowly withdrawn and removed. DUODENUM: A single non-bleeding non-bleeding, deep and clean-based ulcer, ranging between 3-7mm in size, with surrounding edema was found in the duodenal bulb. STOMACH: There was erythematous severe and erosive gastritis in the gastric antrum. A biopsy was performed using cold forceps. Sample sent for histology. ESOPHAGUS: There was LA Class A esophagitis noted. ADVERSE EVENTS: There were no complications. IMPRESSIONS: 1. Single non-bleeding ulcer, ranging between 3-7mm in size, was found in the duodenal bulb 2. There was erythematous gastritis in the gastric antrum; biopsy was performed 3. There was LA Class A esophagitis noted 4. Retroflexed views revealed no abnormalities RECOMMENDATIONS: 1. Await biopsy results. Biopsy results will not be ready for 7-10 days. If you don't hear from us in two weeks, call our office for biopsy results. 2. Anti-reflux regimen 3. Continue PPI 4. Avoid NSAIDS PATIENT CONDITION: stable DISPOSITION: Inpatient REPEAT EXAM: Return 8 weeks EGD pending biopsy results Dolores Manuel MD eSigned: Dolores Manuel MD 02/06/2017 11:42 AM cc: PATIENT NAME: Lori Edouard D MR#: [id number]
--- NOTE | 2017-02-06 12:21 | GIPROC ---
[facility] [address] [facility]. [facility], [address] COLONOSCOPY PROCEDURE REPORT EXAM DATE: 02/06/2017 PATIENT NAME: Edouard Sandoval MR #: [id number] BIRTHDATE: 1950 ENDOSCOPIST: Dolores Manuel MD ORDER #: [id number] JACQUARD FIXER: Daniel Reyez and Josette Burns STATUS: inpatient INDICATIONS: The patient is a 66 yr old male here for a colonoscopy due to iron deficiency anemia PROCEDURE PERFORMED: Colonoscopy with ablation MEDICATIONS: None and Per Anesthesia. PREP QUALITY: The Etters Bowel Prep Score was Right colon 2, Mid colon 3, and Left colon 3. Total = 8. PREP TYPE:GoLytely ESTIMATED BLOOD LOSS: None CONSENT: The patient understands the risks and benefits of the procedure and understands that these risks include, but are not limited to: sedation, allergic reaction, infection, perforation and/or bleeding. Alternative means of evaluation and treatment include, among others: physical exam, x-rays, and/or surgical intervention. The patient elects to proceed with this endoscopic procedure. medical equipment was checked for proper function. Hand hygiene and appropriate measures for infection prevention was taken. After the risks, benefits and alternatives of the procedure were thoroughly explained, Informed consent was verified, confirmed and timeout was successfully executed by the treatment team. A digital exam revealed external hemorrhoids The Pentax EC-3490Li endoscope was introduced through the anus and advanced to the cecum, which was identified by both the appendix and ileocecal valve. The instrument was then slowly withdrawn as the colon was fully examined. COLON FINDINGS: Small angiodysplastic lesion was found in the ascending colon. Thermal therapy was used to destroy tissue. Retroflexed views revealed internal hemorrhoids and Retroflexed views revealed small internal hemorrhoids The scope was then completely withdrawn from the patient and the procedure terminated. PROCEDURE WITHDRAWAL TIME:6minutes ADVERSE EVENTS: There were no complications. IMPRESSIONS: 1. Small angiodysplastic lesion and in the ascending colon 2. Retroflexed views revealed internal hemorrhoids 3. Retroflexed views revealed small internal hemorrhoids 4. Revealed external hemorrhoids RECOMMENDATIONS: Yearly hemoccult RECALL: Return 5 years Colonoscopy Dolores Manuel MD eSigned: Dolores Manuel MD 02/06/2017 11:44 AM cc: [id number]
[2017-02-06] MEDS ORDERED: IRON SUCROSE INJ 200 MG in SODIUM CHLORIDE 0.9% INJ 100 ML IV ONE (14:00)
--- NOTE | 2017-02-06 14:08 | EKG ---
Date Performed: 02/05/2017 Time Performed: 12:09:39 PTAGE: 66 years EKG: Sinus rhythm WITH FIRST DEGREE AV BLOCK POSSIBLE ANTERIOR MYOCARDIAL INFARCTION ABNORMAL ECG PREVIOUS TRACING : 04/02/2016 03.47 DOCTOR: Jonathan Florez Interpretating Date/Time 02/06/2017 14:00:17
--- NOTE | 2017-02-06 17:23 | MB ---
cc: DENZEL DAI DATE OF CONSULTATION 02/06/17 REASON FOR CONSULTATION Bradycardia possible high degree AV block. HISTORY OF PRESENT ILLNESS Mr. Sandoval is a 66 who does have a history of heart failure and non-ST elevation [place] with stenting of his RCA in March of 2016 with a bare metal stent to the distal RCA. The patient has been asymptomatic from a cardiovascular perspective. He was admitted with severe anemia secondary to GI bleed with hemoglobin of 5.6. The patient has had four units of blood. He was found to have an arrhythmia and cardiology was subsequently consulted. PAST MEDICAL HISTORY 1. Hypertension, 2. Hyperlipidemia, 3. CAD status post bare metal stent 4. Appendectomy, 5. Hand surgery. ALLERGIES NO KNOWN DRUG ALLERGIES. MEDICATIONS Outpatient 1. Aspirin. 2. Coreg 3. Gabapentin 4. Furosemide, 5. Effient 6. Atorvastatin 7. Hydrocodone. FAMILY HISTORY Positive for CAD. SOCIAL HISTORY The patient does not smoke and does drink 2-3 beers a day. REVIEW OF SYSTEMS Positive for fatigue. Other than this and what is mentioned in HPI, all 12 systems are negative. PHYSICAL EXAMINATION VITAL SIGNS: 98.2, 76, 18, 151/73. GENERAL: He is an overweight man who is in no apparent distress. NECK: Free from JVD. LUNGS: Bilaterally clear to auscultation. CARDIOVASCULAR: He has a normal S1 and S2. I did not appreciate murmurs, rubs or gallops. ABDOMEN: Soft. EXTREMITIES: Free from edema. LABORATORY FINDINGS Current hemoglobin of 7.9. His creatinine is 0.76. CARDIOLOGY STUDIES Telemetry shows Wenckebach Mobitz type 1. IMPRESSION 1. Arrhythmia - the patient does have dropped beats, but this is Wenckebach with the NM interval following the dropped beat being much smaller than the preceding NM interval. The patient is asymptomatic. I do agree that stopping the Coreg is reasonable. 2. GI bleed - this is being managed by GI. The patient had a bare metal stent and it would be quite reasonable to stop both the Effient and the aspirin at this point. I will be available on a p.r.n. basis. We would be happy to see him should any further cardiac questions arise. Denzel Dai M.D. ANNETTE/ /4:37 PM /5:09 PM
--- NOTE | 2017-02-06 19:01 | EC ---
Study Study Date:02/06/2017 STUDY CONCLUSIONS SUMMARY - Left ventricle: The cavity size was normal. Wall thickness was normal. Systolic function was normal. The estimated ejection fraction was in the range of 55% to 60%. Wall motion was normal; there were no regional wall motion abnormalities. - Aortic valve: Valve area: 1.81cm^2(VTI). Valve area: 1.62cm^2 (Vmax). - Mitral valve: Mild regurgitation. - Tricuspid valve: Mild regurgitation. - Pulmonary arteries: PA peak pressure: 45mm Hg (S). If LV function is below 40, please consider prescribing an ACEI or ARB or document rationale for non-use. PROCEDURE DATA STUDY STATUS: Elective. Procedure: Transthoracic echocardiography. Image quality was good. Scanning was performed from the parasternal, apical, and subcostal acoustic windows. Study completion: The patient tolerated the procedure well. Transthoracic echocardiography. M-mode, complete 2D, complete spectral Doppler, and color Doppler. Patient status: Inpatient. CARDIAC ANATOMY LEFT VENTRICLE: The cavity size was normal. Wall thickness was normal. Systolic function was normal. The estimated ejection fraction was in the range of 55% to 60%. Wall motion was normal; there were no regional wall motion abnormalities. AORTIC VALVE: Trileaflet; normal thickness leaflets. Doppler: Transvalvular velocity was within the normal range. There was no stenosis. No regurgitation. Valve area: 1.81cm^2(VTI). Valve area: 1.62cm^2 (Vmax). Mean gradient: 8mm Hg (S). Peak gradient: 18mm Hg (S). AORTA: Aortic root: The aortic root was normal in size. MITRAL VALVE: Structurally normal valve. Doppler: Transvalvular velocity was within the normal range. There was no evidence for stenosis. Mild regurgitation. LEFT ATRIUM: The atrium was normal in size. RIGHT VENTRICLE: The cavity size was normal. Wall thickness was normal. PULMONIC VALVE: Doppler: Transvalvular velocity was within the normal range. There was no evidence for stenosis. No regurgitation. TRICUSPID VALVE: Structurally normal valve. Doppler: Transvalvular velocity was within the normal range. Mild regurgitation. PULMONARY ARTERY: The main pulmonary artery was normal-sized. Systolic pressure was within the normal range. RIGHT ATRIUM: The atrium was normal in size. PERICARDIUM: There was no pericardial effusion. SYSTEMIC VEINS: Inferior vena cava: The vessel was normal in size. BASIC MEASUREMENTS ADULT NORMAL Left ventricle LV internal dimension, ED, chordal level, 47 mm 43-52 PLAX LV internal dimension, ES, chordal level, 36 mm 23-38 PLAX Fractional shortening, chordal level, PLAX *23 % >29 LV posterior wall thickness, ED 13 mm IVS/LVPW ratio, ED 1.12 <1.3 Ventricular septum Septal thickness, ED 14.6 mm Aortic valve Leaflet separation 23 mm 15-26 Right ventricle RV internal dimension, ED, PLAX 36.4 mm 19-38 BASIC MEASUREMENTS ADULT NORMAL Aortic valve Leaflet separation 23 mm 15-26 Aorta Root diameter, ED *38 mm 20-37 Left atrium Anterior-posterior dimension, ES *42 mm 19-40 LA/aortic root ratio 1.11 DOPPLER MEASUREMENTS ADULT NORMAL Main pulmonary artery Pressure, S *45 mm Hg =30 Aortic valve Peak velocity, S 210 cm/s Mean velocity, S 130 cm/s VTI, S 39.9 cm Mean gradient, S 8 mm Hg Peak gradient, S 18 mm Hg Valve area, VTI 1.81 cm^2 Valve area, Vmax 1.62 cm^2 Tricuspid valve Regurgitant peak velocity 296 cm/s Peak RV-RA gradient, S 35 mm Hg Systemic veins Estimated CVP 10 mm Hg Right ventricle RV pressure, S *45 mm Hg <30 LEGEND: Mean values are shown as u=mean value. Asterisk (*) monterroso values outside specified normal range. Prepared and signed by Richard Jewell [id number]
[2017-02-06] MEDS: ATORVASTATIN 10 MG TAB PO SCH (21:17)
[2017-02-07] VITALS (30 sets, daily range): BP systolic 139–161; BP diastolic 66–91; PULSE 57–97; RESP 16–19; TEMP 98.1–98.5; O2SAT 93–99
[2017-02-07] MEDS: LACTATED RINGER'S 1000 ML IV SCH ×2 (00:15→21:37)
[2017-02-07] MEDS: ACETAMINOPHEN/HYDROcodone 325 MG/10 MG TAB PO PRN ×3 (03:24→21:39)
[2017-02-07 05:49] LABS: MEAN CORPUSCULAR HEMOGLOBIN 26.1 PG (27.0-34.0); MEAN CORPUSCULAR HGB CONC 32.6 % (32.0-36.0); PLATELET COUNT 216 TH/MM3 (150-450); RED BLOOD COUNT 3.38 MIL/MM3 (4.50-5.90); RED CELL DISTRIBUTION WIDTH 16.7 % (11.6-17.2); REVIEW FLAG FINAL
--- NOTE | 2017-02-07 08:22 | HHI.PR ---
Subjective Remarks This is a pleasant 66 y/o male sent to ER by his primary care physician for evaluation of severe anemia, has mild shortness of breath on exertion, generalized fatigue, and swelling of his bilateral lower extremities for the past several weeks. has GERD, CAD status post Cardiac Cath wit stent placement, a year ago, on Effient and Aspirin, has Hypertension, Hyperlipidemia, OA, with Diagnosis of Severe anemia as Symptomatic anemia, recommended for EGD and Colonoscopy. found Single non bleeding ulcer ranging between 3-7 mm size there was erythematous gastritis in the gastric antrum biopsy performed, class A esophagitis noted, continue PPIs, on Colonoscopy Small angiodysplastic lesion and in the ascending Colon, Internal hemorrhoids, external Hemorrhoids. for yearly hem-occult and five year return for Colonoscopy. tolerating diet, Effient and Aspirin on hold due to active bleeding, recommended Protonix 40 mg patient with no nausea, vomit or diarrhea, no abdominal pain and no rectal bleed. Objective Vital Signs Date Time Temp Pulse Resp B/P Pulse Ox O2 Delivery O2 Flow Rate FiO2 02/07/17 07:22 64 02/07/17 06:01 61 02/07/17 05:00 68 02/07/17 04:49 63 02/07/17 03:25 98.5 72 16 156/91 97 02/07/17 03:00 81 02/07/17 02:08 69 02/07/17 01:06 65 02/07/17 00:00 68 02/06/17 23:30 98.0 74 16 135/75 95 02/06/17 23:00 72 02/06/17 22:00 70 02/06/17 21:00 68 02/06/17 20:00 80 02/06/17 19:45 97.7 80 18 159/83 99 02/06/17 19:45 78 02/06/17 19:25 97 21 02/06/17 18:35 84 02/06/17 17:49 98.1 77 15 145/68 97 02/06/17 17:28 68 02/06/17 16:26 84 02/06/17 15:00 98.2 76 18 151/73 99 02/06/17 15:00 76 02/06/17 14:56 84 02/06/17 13:31 70 02/06/17 12:35 62 02/06/17 11:55 61 16 115/64 94 02/06/17 11:47 64 16 115/65 94 02/06/17 11:37 97.6 71 16 107/51 95 02/06/17 11:00 97.6 74 18 148/71 100 02/06/17 09:51 98.4 83 16 154/70 98 02/06/17 09:00 68 I/O 02/06/17 02/06/17 02/06/17 02/07/17 02/07/17 02/07/17 07:00 15:00 23:00 07:00 15:00 23:00 Intake Total 2851 ml 400 ml 1065 ml 360 ml Balance 2851 ml 400 ml 1065 ml 360 ml Intake Oral 2240 ml 700 ml 360 ml IV Total 125 ml Packed Cells 611 ml 240 ml Other 400 ml # Voids 4 4 3 # Bowel Movements 4 1 3 Result Diagram: 02/07/17 0525 02/06/17 0555 Imaging Last Impressions Chest X-Ray 02/05/17 0000 Signed Impressions: Service Date/Time: Sunday, February 05, 2017 18:22 - CONCLUSION: No acute disease. Alexis Pfeiffer MD Procedures EGD and Colonoscopy seen report. Other Results Laboratory Tests Test 02/05/17 02/05/17 02/05/17 02/06/17 12:30 13:53 14:16 05:55 Prothrombin Time 11.4 SEC Prothromb Time International 1.0 RATIO Ratio Activated Partial 23.6 SEC Thromboplast Time Iron Level 14 MCG/DL Total Iron Binding Capacity 419 MCG/DL Percent Iron Saturation 3.3 % Ferritin 6 NG/ML Total Bilirubin 0.4 MG/DL Aspartate Amino Transf 18 U/L (AST/SGOT) Alanine Aminotransferase 26 U/L (ALT/SGPT) Alkaline Phosphatase 58 U/L Total Protein 6.3 GM/DL Albumin 3.3 GM/DL Vitamin B12 Level 858 PG/ML Folate 16.2 NG/ML Antibody Screen NEGATIVE Blood Type A POSITIVE Crossmatch Leukocyte-Reduced Red Blood Cells Blood Bank Comment Neutrophils (%) (Auto) 60.7 % Lymphocytes (%) (Auto) 21.8 % Monocytes (%) (Auto) 11.2 % Eosinophils (%) (Auto) 5.2 % Basophils (%) (Auto) 1.1 % Neutrophils # (Auto) 4.4 TH/MM3 Lymphocytes # (Auto) 1.6 TH/MM3 Monocytes # (Auto) 0.8 TH/MM3 Eosinophils # (Auto) 0.4 TH/MM3 Basophils # (Auto) 0.1 TH/MM3 CBC Comment DIFF FINAL Differential Comment Sodium Level 140 MEQ/L Potassium Level 3.6 MEQ/L Chloride Level 104 MEQ/L Carbon Dioxide Level 27.3 MEQ/L Anion Gap 9 MEQ/L Blood Urea Nitrogen 8 MG/DL Creatinine 0.76 MG/DL Estimat Glomerular Filtration 103 ML/MIN Rate Random Glucose 110 MG/DL Calcium Level 8.2 MG/DL Test 02/07/17 05:25 White Blood Count 8.0 TH/MM3 Red Blood Count 3.38 MIL/MM3 Hemoglobin 8.8 GM/DL Hematocrit 27.0 % Mean Corpuscular Volume 80.0 FL Mean Corpuscular Hemoglobin 26.1 PG Mean Corpuscular Hemoglobin 32.6 % Concent Red Cell Distribution Width 16.7 % Platelet Count 216 TH/MM3 Mean Platelet Volume 9.2 FL Objective Remarks GENERAL: SKIN: Warm and dry. HEAD: Atraumatic. Normocephalic. EYES: Pupils equal and round. No scleral icterus. No injection or drainage. ENT: No nasal bleeding or discharge. Mucous membranes pink and moist. NECK: Trachea midline. No JVD. CARDIOVASCULAR: Regular rate and rhythm. RESPIRATORY: No accessory muscle use. Clear to auscultation. Breath sounds equal bilaterally. GASTROINTESTINAL: Abdomen soft, non-tender, nondistended. Hepatic and splenic margins not palpable. MUSCULOSKELETAL: Extremities without clubbing, cyanosis, or edema. No obvious deformities. NEUROLOGICAL: Awake and alert. No obvious cranial nerve deficits. Motor grossly within normal limits. Five out of 5 muscle strength in the arms and legs. Normal speech. PSYCHIATRIC: Appropriate mood and affect; insight and judgment normal. Medications and IVs Current Medications Medications (Trade) Dose Ordered Sig/Yisel Route Start Time Stop Time Status Last Admin (NS Flush) 2 ml UNSCH PRN IVF 02/05/17 12:30 02/05/17 18:23 (Protonix Inj) 40 mg BID IV PUSH 02/05/17 21:00 02/06/17 21:16 (Lipitor) 10 mg HS PO 02/05/17 21:00 02/06/17 21:17 (Coreg) 3.125 mg BID PO 02/05/17 21:00 Hold 02/06/17 09:13 (Neurontin) 300 mg TID PO 02/05/17 18:00 02/06/17 17:18 Acetaminophen/ Hydrocodone Bitart 1 tab 1 tab Q6HR PRN PO 02/05/17 17:45 02/07/17 03:24 (Lr 1000 ml Inj) 1,000 ml @ 30 mls/hr Q24H IV 02/06/17 00:15 02/06/17 09:13 A/P Problem List: (1) GI (gastrointestinal bleed) ICD Code: K92.2 (2) CAD (coronary artery disease) ICD Code: I25.10 Assessment and Plan 1. Symptomatic Anemia, Acute blood loss anemia secondary to GI bleed, status post Colonoscopy, found Small angiodysplastic lesion in the ascending Colon, Reflexed views revealed internal hemorrhoids, retroflexed views revealed small internal hemorrhoids has External hemorrhoids. Single non bleeding ulcer, ranging between 3-7 mm size erythematous gastritis in the gastric antrum Class A esophagitis noted, recommended to continue PPIs, Effient and Aspirin on hold due to active bleeding, until re started by GI specialist. and data analytics specialist agree with holding this medicines. Given IV Venofer, transfused three units of PRBCs, P 2,. History of CAD status post stent 2, has Arrhythmia seen by data analytics specialist has Wenckebach Mobitz Type 1, agree with stopping Coreg agree with stopping Effient and Aspirin due to GI bleed. 3. Chronic leg swelling 4. Arthritis continue on when necessary pain meds No chemical prophylaxis secondary to GI bleed Awaiting final recommendations by GI specialist for discharge. Discharge Planning Expected by tomorrow. Problem Qualifiers (1) GI (gastrointestinal bleed): Qualified Code: K92.1 - Gastrointestinal hemorrhage with melena Myron Zhang MD Feb 07, 2017 08:21
--- NOTE | 2017-02-07 09:02 | HHI.GIFU ---
Subjective Remarks Resting in bed. No active gi bleeding. Tolerating diet. No n/v/abdominal pain. (Charu So) Objective Vitals I&O Vital Signs Date Time Temp Pulse Resp B/P Pulse Ox O2 Delivery O2 Flow Rate FiO2 02/07/17 07:22 64 02/07/17 06:01 61 02/07/17 05:00 68 02/07/17 04:49 63 02/07/17 03:25 98.5 72 16 156/91 97 02/07/17 03:00 81 02/07/17 02:08 69 02/07/17 01:06 65 02/07/17 00:00 68 02/06/17 23:30 98.0 74 16 135/75 95 02/06/17 23:00 72 02/06/17 22:00 70 02/06/17 21:00 68 02/06/17 20:00 80 02/06/17 19:45 97.7 80 18 159/83 99 02/06/17 19:45 78 02/06/17 19:25 97 21 02/06/17 18:35 84 02/06/17 17:49 98.1 77 15 145/68 97 02/06/17 17:28 68 02/06/17 16:26 84 02/06/17 15:00 98.2 76 18 151/73 99 02/06/17 15:00 76 02/06/17 14:56 84 02/06/17 13:31 70 02/06/17 12:35 62 02/06/17 11:55 61 16 115/64 94 02/06/17 11:47 64 16 115/65 94 02/06/17 11:37 97.6 71 16 107/51 95 02/06/17 11:00 97.6 74 18 148/71 100 02/06/17 09:51 98.4 83 16 154/70 98 02/06/17 09:00 68 I/O 02/06/17 02/06/17 02/06/17 02/07/17 02/07/17 02/07/17 07:00 15:00 23:00 07:00 15:00 23:00 Intake Total 2851 ml 400 ml 1065 ml 360 ml Balance 2851 ml 400 ml 1065 ml 360 ml Intake Oral 2240 ml 700 ml 360 ml IV Total 125 ml Packed Cells 611 ml 240 ml Other 400 ml # Voids 4 4 3 # Bowel Movements 4 1 3 Laboratory Laboratory Tests Test 02/07/17 05:25 White Blood Count 8.0 Red Blood Count 3.38 Hemoglobin 8.8 Hematocrit 27.0 Mean Corpuscular Volume 80.0 Mean Corpuscular Hemoglobin 26.1 Mean Corpuscular Hemoglobin 32.6 Concent Red Cell Distribution Width 16.7 Platelet Count 216 Mean Platelet Volume 9.2 Imaging Last Impressions Chest X-Ray 02/05/17 0000 Signed Impressions: Service Date/Time: Sunday, February 05, 2017 18:22 - CONCLUSION: No acute disease. Alexis Pfeiffer MD Physical Exam HEENT: Normocephalic; atraumatic; no jaundice. CHEST: CTA CARDIAC: RRR ABDOMEN: Soft, nondistended, nontender; no hepatosplenomegaly; bowel sounds are present in all four quadrants. EXTREMITIES: Mild BLE edema. SKIN: Dry scabs to BLE [employer]: No focal deficits; alert and oriented times three. (Charu So) Assessment and Plan Plan ASSESSMENT: - Severe anemia with hemoccult positive stool. He has CAD and hx of stent placement and takes Effient/ASA at home, drinks 2-3 beers per day, and uses Moon-Sch[place]enburg as needed for his GERD symptoms. S/P EGD/Colonoscopy ( 02/06/17)-----> Single nonbleeding ulcer 3-7 mm in size in duodenal bulb, erythematous gastritis in gastric antrum, LA Class A esophagitis; small angiodysplastic lesion in the ascending colon, retroflexed views revealed small internal hemorrhoids, external hemorrhoids. Pathology pending. S/P 4 units of PRBC. HH 8.8/27.0. Clinically, he is tolerating his diet with no active bleeding. - Nausea, GERD with daily symptoms. S/P EGD as above. PPI. Pathology pending. - CAD with hx of stent placement, has been on Effient and ASA at home. S/P cardiology evaluation, per cardiology, would be reasonable to stop Effient and ASA at this point secondary to GI bleeding. - HTN, Hyperlipidemia, Arthritis. Per primary. PLAN: - Heart healthy diet - Await pathology - Change Protonix to 40mg po BID - Iron transfusions - Monitor HH - Transfuse as necessary - Avoid NSAIDs - Avoid ETOH - Avoid Moon-Sch[place] - Rpt. EGD 8 weeks - Rpt. Colonoscopy 5 years - Effient and ASA on hold- further recommendations regarding this per cardiology - Supportive care - Further recommendations to follow based on results of above - Pt seen and examined by Dr. Manuel and myself and this note is written on his behalf (Charu So) Physician Comments Seen and examined with HANH, no bleeding. S/P egd/colonoscopy yesterday with duodenal ulcer. Protonix daily. Anticoagulate as needed. (Dolores Manuel MD) Charu So Feb 07, 2017 09:02 Dolores Manuel MD Feb 07, 2017 12:23
[2017-02-07] MEDS: GABAPENTIN 300 MG CAP PO SCH ×3 (09:52→17:39)
--- NOTE | 2017-02-07 15:41 | EKG ---
Date Performed: 02/06/2017 Time Performed: 16:37:32 PTAGE: 66 years EKG: Sinus rhythm with 1st degree A-V block Possible septal infarct - age undetermined Abnormal ECG PREVIOUS TRACING : 02/05/2017 12.09 Compared to prior tracing no significant change DOCTOR: Kelly Churchill Interpretating Date/Time 02/07/2017 15:39:18
[2017-02-07 16:14] LABS: HEMATOCRIT 27.6 % (39.0-51.0)
[2017-02-07] MEDS: ATORVASTATIN 10 MG TAB PO SCH (21:39)
[2017-02-07] MEDS: PANTOPRAZOLE SOD 40 MG DELAYED RELEASE TAB PO SCH (21:39)
[2017-02-07] MEDS: SODIUM CHLORIDE 0.9% FLUSH 5 ML FLUSH IVF PRN (21:39)
[2017-02-08] VITALS (18 sets, daily range): BP systolic 135–153; BP diastolic 64–83; PULSE 51–84; RESP 16–18; TEMP 98.1–98.5; O2SAT 96–99
[2017-02-08] MEDS: ACETAMINOPHEN/HYDROcodone 325 MG/10 MG TAB PO PRN ×2 (03:21→09:34)
[2017-02-08] MEDS: GABAPENTIN 300 MG CAP PO SCH ×2 (08:39→13:00)
[2017-02-08] MEDS: PANTOPRAZOLE SOD 40 MG DELAYED RELEASE TAB PO SCH (08:39)
--- NOTE | 2017-02-08 11:21 | HHI.PR ---
Subjective Remarks This is a pleasant 66 y/o male sent to ER by his primary care physician for evaluation of severe anemia, has mild shortness of breath on exertion, generalized fatigue, and swelling of his bilateral lower extremities for the past several weeks. has GERD, CAD status post Cardiac Cath wit stent placement, a year ago, on Effient and Aspirin, has Hypertension, Hyperlipidemia, OA, with Diagnosis of Severe anemia as Symptomatic anemia, recommended for EGD and Colonoscopy. found Single non bleeding ulcer ranging between 3-7 mm size there was erythematous gastritis in the gastric antrum biopsy performed, class A esophagitis noted, continue PPIs, on Colonoscopy Small angiodysplastic lesion and in the ascending Colon, Internal hemorrhoids, external Hemorrhoids. for yearly hem-occult and five year return for Colonoscopy. tolerating diet, Effient and Aspirin on hold due to active bleeding, recommended Protonix 40 mg patient with no nausea, vomit or diarrhea, no abdominal pain and no rectal bleed. 02/08 Seen in his bedroom in the presence of nurse Miss Valeria brooks, also already recommended for discharge by GI specialist no complaint no Nausea, vomit or diarrhea, no new GI bleed his latest Hemoglobin level is 8.9 Objective Vital Signs Date Time Temp Pulse Resp B/P Pulse Ox O2 Delivery O2 Flow Rate FiO2 02/08/17 10:00 72 02/08/17 09:00 84 02/08/17 08:24 98.1 69 18 151/80 96 02/08/17 08:00 66 02/08/17 07:00 57 02/08/17 06:00 60 02/08/17 05:00 62 02/08/17 04:00 62 02/08/17 03:22 66 16 153/83 99 02/08/17 03:00 51 02/08/17 02:00 60 02/08/17 01:00 64 02/08/17 00:00 62 02/07/17 23:27 57 16 139/71 98 02/07/17 23:00 67 02/07/17 22:00 64 02/07/17 21:00 62 02/07/17 20:00 64 02/07/17 19:30 98.3 79 18 161/79 99 02/07/17 19:17 93 21 02/07/17 19:00 81 02/07/17 18:25 66 02/07/17 17:47 63 02/07/17 16:34 62 02/07/17 15:00 98.2 67 19 149/80 98 02/07/17 15:00 60 02/07/17 14:07 74 02/07/17 13:00 74 02/07/17 12:33 67 I/O 02/07/17 02/07/17 02/07/17 02/08/17 02/08/17 02/08/17 07:00 15:00 23:00 07:00 15:00 23:00 Intake Total 360 ml 500 ml 600 ml Output Total 850 ml Balance 360 ml -350 ml 600 ml Intake Oral 360 ml 500 ml 600 ml IV Total 0 ml Output Urine Total 850 ml # Voids 3 2 # Bowel Movements 3 0 0 Result Diagram: 02/07/17 1455 02/06/17 0555 Imaging Last Impressions Chest X-Ray 02/05/17 0000 Signed Impressions: Service Date/Time: Sunday, February 05, 2017 18:22 - CONCLUSION: No acute disease. Alexis Pfeiffer MD Procedures EGD and Colonoscopy seen report. Other Results Laboratory Tests Test 02/05/17 02/05/17 02/05/17 02/06/17 12:30 13:53 14:16 05:55 Prothrombin Time 11.4 SEC Prothromb Time International 1.0 RATIO Ratio Activated Partial 23.6 SEC Thromboplast Time Iron Level 14 MCG/DL Total Iron Binding Capacity 419 MCG/DL Percent Iron Saturation 3.3 % Ferritin 6 NG/ML Total Bilirubin 0.4 MG/DL Aspartate Amino Transf 18 U/L (AST/SGOT) Alanine Aminotransferase 26 U/L (ALT/SGPT) Alkaline Phosphatase 58 U/L Total Protein 6.3 GM/DL Albumin 3.3 GM/DL Vitamin B12 Level 858 PG/ML Folate 16.2 NG/ML Antibody Screen NEGATIVE Blood Type A POSITIVE Crossmatch Leukocyte-Reduced Red Blood Cells Blood Bank Comment Neutrophils (%) (Auto) 60.7 % Lymphocytes (%) (Auto) 21.8 % Monocytes (%) (Auto) 11.2 % Eosinophils (%) (Auto) 5.2 % Basophils (%) (Auto) 1.1 % Neutrophils # (Auto) 4.4 TH/MM3 Lymphocytes # (Auto) 1.6 TH/MM3 Monocytes # (Auto) 0.8 TH/MM3 Eosinophils # (Auto) 0.4 TH/MM3 Basophils # (Auto) 0.1 TH/MM3 CBC Comment DIFF FINAL Differential Comment Sodium Level 140 MEQ/L Potassium Level 3.6 MEQ/L Chloride Level 104 MEQ/L Carbon Dioxide Level 27.3 MEQ/L Anion Gap 9 MEQ/L Blood Urea Nitrogen 8 MG/DL Creatinine 0.76 MG/DL Estimat Glomerular Filtration 103 ML/MIN Rate Random Glucose 110 MG/DL Calcium Level 8.2 MG/DL Test 02/07/17 02/07/17 05:25 14:55 White Blood Count 8.0 TH/MM3 Red Blood Count 3.38 MIL/MM3 Mean Corpuscular Volume 80.0 FL Mean Corpuscular Hemoglobin 26.1 PG Mean Corpuscular Hemoglobin 32.6 % Concent Red Cell Distribution Width 16.7 % Platelet Count 216 TH/MM3 Mean Platelet Volume 9.2 FL Hemoglobin 8.9 GM/DL Hematocrit 27.6 % Objective Remarks GENERAL: SKIN: Warm and dry. HEAD: Atraumatic. Normocephalic. EYES: Pupils equal and round. No scleral icterus. No injection or drainage. ENT: No nasal bleeding or discharge. Mucous membranes pink and moist. NECK: Trachea midline. No JVD. CARDIOVASCULAR: Regular rate and rhythm. RESPIRATORY: No accessory muscle use. Clear to auscultation. Breath sounds equal bilaterally. GASTROINTESTINAL: Abdomen soft, non-tender, nondistended. Hepatic and splenic margins not palpable. MUSCULOSKELETAL: Extremities without clubbing, cyanosis, or edema. No obvious deformities. NEUROLOGICAL: Awake and alert. No obvious cranial nerve deficits. Motor grossly within normal limits. Five out of 5 muscle strength in the arms and legs. Normal speech. PSYCHIATRIC: Appropriate mood and affect; insight and judgment normal. Medications and IVs Current Medications Medications (Trade) Dose Ordered Sig/Yisel Route Start Time Stop Time Status Last Admin (NS Flush) 2 ml UNSCH PRN IVF 02/05/17 12:30 02/07/17 21:39 (Lipitor) 10 mg HS PO 02/05/17 21:00 02/07/17 21:39 (Coreg) 3.125 mg BID PO 02/05/17 21:00 Hold 02/06/17 09:13 (Neurontin) 300 mg TID PO 02/05/17 18:00 02/08/17 08:39 Acetaminophen/ Hydrocodone Bitart 1 tab 1 tab Q6HR PRN PO 02/05/17 17:45 02/08/17 09:34 (Lr 1000 ml Inj) 1,000 ml @ 30 mls/hr Q24H IV 02/06/17 00:15 02/06/17 09:13 (Protonix) 40 mg Q12HR PO 02/07/17 21:00 02/08/17 08:39 A/P Problem List: (1) GI (gastrointestinal bleed) ICD Code: K92.2 (2) CAD (coronary artery disease) ICD Code: I25.10 Assessment and Plan 1. Symptomatic Anemia, Acute blood loss anemia secondary to GI bleed, status post Colonoscopy, found Small angiodysplastic lesion in the ascending Colon, Reflexed views revealed internal hemorrhoids, retroflexed views revealed small internal hemorrhoids has External hemorrhoids. Single non bleeding ulcer, ranging between 3-7 mm size erythematous gastritis in the gastric antrum Class A esophagitis noted, recommended to continue PPIs, Effient and Aspirin on hold due to active bleeding, until re started by GI specialist. and [facility] principal solution specialist agree with holding this medicines. Given IV Venofer, transfused three units of PRBCs, actual Hemoglobin 8.9 stable okay to discharge from GI specialist standpoint. 2,. History of CAD status post stent 2, has Arrhythmia seen by [facility] principal solution specialist has Wenckebach Mobitz Type 1, agree with stopping Coreg agree with stopping Effient and Aspirin due to GI bleed. 3. Chronic leg swelling 4. Arthritis continue on when necessary pain meds, the patient states he has Pain medicine at home does not need more No chemical prophylaxis secondary to GI bleed Discharge Planning Cleared for discharge by GI specialist will need to follow with [facility] principal solution specialist and GI at discharge. Problem Qualifiers (1) GI (gastrointestinal bleed): Qualified Code: K92.1 - Gastrointestinal hemorrhage with melena Myron Zhang MD Feb 08, 2017 11:21
[2017-02-08] MEDS ORDERED: CARA1TAB6 PO (12:03)
[2017-02-08] MEDS ORDERED: PANT40TA3 PO (12:03)
[2017-02-08] MEDS ORDERED: FERR1TAB36 PO (12:04)
[2017-02-08] MEDS ORDERED: CLAR500T PO (13:11)
[2017-02-08] MEDS ORDERED: AMOX500T PO (13:11)
--- NOTE | 2017-02-08 13:51 | HHI.DS ---
Discharge Summary Admission Date Feb 05, 2017 at 14:14 Discharge Date: Feb 08, 2017 Admitting Diagnosis GI BLEED (1) GI (gastrointestinal bleed) ICD Code: K92.2 Diagnosis: Principal (2) CAD (coronary artery disease) ICD Code: I25.10 Diagnosis: Principal (3) Hypertension ICD Code: I10 Diagnosis: Secondary (4) Alcohol abuse ICD Code: F10.10 Diagnosis: Principal Procedures EGD and Colonoscopy Brief History - From Admission Patient is a very pleasant 66-year-old male with history of hypertension, CAD status post stents 2 year ago for the past 1-1/2 weeks now has been feeling fatigued. He also complained of dark black stools for about a month occasional epigastric/abdominal discomfort. Bowel movements usually is once a day and he has noted it to be "almost black". He denies taking any Motrin/naproxen/more aerobic/Advil. he takes aspirin and Effiant for CAD. He went to his primary care physician where on CBC showed a hemoglobin of 4.7. He was called and was promptly told to come to the emergency room and is now admitted for further evaluation and management. CBC/BMP: 02/07/17 1455 02/06/17 0555 Significant Findings Laboratory Tests Test 02/06/17 02/06/17 02/07/17 02/07/17 00:05 05:55 05:25 14:55 Hemoglobin 7.7 GM/DL 7.9 GM/DL 8.8 GM/DL 8.9 GM/DL (13.0-17.0) (13.0-17.0) (13.0-17.0) (13.0-17.0) Hematocrit 23.9 % 23.9 % 27.0 % 27.6 % (39.0-51.0) (39.0-51.0) (39.0-51.0) (39.0-51.0) Red Blood Count 2.97 MIL/MM3 3.38 MIL/MM3 (4.50-5.90) (4.50-5.90) Mean Corpuscular Hemoglobin 26.6 PG 26.1 PG (27.0-34.0) (27.0-34.0) Monocytes (%) (Auto) 11.2 % (0.0-8.0) Eosinophils (%) (Auto) 5.2 % (0.0-4.0) Random Glucose 110 MG/DL (74-106) Calcium Level 8.2 MG/DL (8.5-10.1) Imaging Last Impressions Chest X-Ray 02/05/17 0000 Signed Impressions: Service Date/Time: Sunday, February 05, 2017 18:22 - CONCLUSION: No acute disease. Alexis Pfeiffer MD PE at Discharge GENERAL: No acute distress SKIN: Warm and dry. HEAD: Atraumatic. Normocephalic. EYES: Pupils equal and round. No scleral icterus. No injection or drainage. ENT: No nasal bleeding or discharge. Mucous membranes pink and moist. NECK: Trachea midline. No JVD. CARDIOVASCULAR: Regular rate and rhythm. RESPIRATORY: No accessory muscle use. Clear to auscultation. Breath sounds equal bilaterally. GASTROINTESTINAL: Abdomen soft, non-tender, nondistended. Hepatic and splenic margins not palpable. MUSCULOSKELETAL: Extremities without clubbing, cyanosis, or edema. No obvious deformities. NEUROLOGICAL: Awake and alert. No obvious cranial nerve deficits. Motor grossly within normal limits. Five out of 5 muscle strength in the arms and legs. Normal speech. PSYCHIATRIC: Appropriate mood and affect; insight and judgment normal. Hospital Course This is a pleasant 66 y/o male sent to ER by his primary care physician for evaluation of severe anemia, has mild shortness of breath on exertion, generalized fatigue, and swelling of his bilateral lower extremities for the past several weeks. has GERD, CAD status post Cardiac Cath wit stent placement, a year ago, on Effient and Aspirin, has Hypertension, Hyperlipidemia, OA, with Diagnosis of Severe anemia as Symptomatic anemia, recommended for EGD and Colonoscopy. found Single non bleeding ulcer ranging between 3-7 mm size there was erythematous gastritis in the gastric antrum biopsy performed, class A esophagitis noted, continue PPIs, on Colonoscopy Small angiodysplastic lesion and in the ascending Colon, Internal hemorrhoids, external Hemorrhoids. for yearly hem-occult and five year return for Colonoscopy. tolerating diet, Effient and Aspirin on hold due to active bleeding, recommended Protonix 40 mg patient with no nausea, vomit or diarrhea, no abdominal pain and no rectal bleed. 02/08 Seen in his bedroom in the presence of nurse Miss Valeria brooks, also already recommended for discharge by GI specialist no complaint no Nausea, vomit or diarrhea, no new GI bleed his latest Hemoglobin level is 8.9 Assessment and Plan 1. Symptomatic Anemia, Acute blood loss anemia secondary to GI bleed, status post Colonoscopy, found Small angiodysplastic lesion in the ascending Colon, Reflexed views revealed internal hemorrhoids, retroflexed views revealed small internal hemorrhoids has External hemorrhoids. Single non bleeding ulcer, ranging between 3-7 mm size erythematous gastritis in the gastric antrum Class A esophagitis noted, recommended to continue PPIs, Effient and Aspirin on hold due to active bleeding, until re started by GI specialist. and data processing specialist agree with holding this medicines. Given IV Venofer, transfused three units of PRBCs, actual Hemoglobin 8.9 stable okay to discharge from GI specialist standpoint. 2,. History of CAD status post stent 2, has Arrhythmia seen by data processing specialist has Wenckebach Mobitz Type 1, agree with stopping Coreg agree with stopping Effient and Aspirin due to GI bleed. 3. Chronic leg swelling 4. Arthritis continue on when necessary pain meds, the patient states he has Pain medicine at home does not need more No chemical prophylaxis secondary to GI bleed Discharge Planning Cleared for discharge by GI specialist will need to follow with data processing specialist and GI at discharge. Pt Condition on Discharge: Good Discharge Disposition: Discharge Home Discharge Time: > 30 minutes Discharge Instructions DIET: Follow Instructions for: Heart Healthy Diet Activities you can perform: Regular-No Restrictions Myron Zhang MD Feb 08, 2017 13:51
--- NOTE | 2017-02-08 14:02 | HHI.GIFU ---
Subjective Remarks Resting in bed. No n/v. No bleeding. No abdominal pain. Tolerating diet. ( Charu So) Objective Vitals I&O Vital Signs Date Time Temp Pulse Resp B/P Pulse Ox O2 Delivery O2 Flow Rate FiO2 02/08/17 13:00 78 02/08/17 12:00 81 02/08/17 11:19 98.5 71 16 135/64 96 02/08/17 11:00 75 02/08/17 10:00 72 02/08/17 09:00 84 02/08/17 08:24 98.1 69 18 151/80 96 02/08/17 08:00 66 02/08/17 07:00 53 02/08/17 06:00 60 02/08/17 05:00 62 02/08/17 04:00 62 02/08/17 03:22 66 16 153/83 99 02/08/17 03:00 51 02/08/17 02:00 60 02/08/17 01:00 64 02/08/17 00:00 62 02/07/17 23:27 57 16 139/71 98 02/07/17 23:00 67 02/07/17 22:00 64 02/07/17 21:00 62 02/07/17 20:00 64 02/07/17 19:30 98.3 79 18 161/79 99 02/07/17 19:17 93 21 02/07/17 19:00 81 02/07/17 18:25 66 02/07/17 17:47 63 02/07/17 16:34 62 02/07/17 15:00 98.2 67 19 149/80 98 02/07/17 15:00 60 02/07/17 14:07 74 I/O 02/07/17 02/07/17 02/07/17 02/08/17 02/08/17 02/08/17 07:00 15:00 23:00 07:00 15:00 23:00 Intake Total 360 ml 500 ml 600 ml Output Total 850 ml Balance 360 ml -350 ml 600 ml Intake Oral 360 ml 500 ml 600 ml IV Total 0 ml Output Urine Total 850 ml # Voids 3 2 # Bowel Movements 3 0 0 Laboratory Laboratory Tests Test 02/07/17 14:55 Hemoglobin 8.9 Hematocrit 27.6 Imaging Last Impressions Chest X-Ray 02/05/17 0000 Signed Impressions: Service Date/Time: Sunday, February 05, 2017 18:22 - CONCLUSION: No acute disease. Alexis Pfeiffer MD Physical Exam HEENT: Normocephalic; atraumatic; no jaundice. CHEST: CTA CARDIAC: RRR ABDOMEN: Soft, nondistended, nontender; no hepatosplenomegaly; bowel sounds are present in all four quadrants. EXTREMITIES: Mild BLE edema. SKIN: Dry scabs to BLE INTERNAL CONTROL CONSULTANT: No focal deficits; alert and oriented times three. (SoCharu) Assessment and Plan Plan ASSESSMENT: - Severe anemia with hemoccult positive stool. He has CAD and hx of stent placement and takes Effient/ASA at home, drinks 2-3 beers per day, and uses [place] as needed for his GERD symptoms. S/P EGD/Colonoscopy ( 02/06/17)-----> Single nonbleeding ulcer 3-7 mm in size in duodenal bulb, erythematous gastritis in gastric antrum, LA Class A esophagitis; small angiodysplastic lesion in the ascending colon, retroflexed views revealed small internal hemorrhoids, external hemorrhoids. Pathology moderately active chronic antral gastritis, scattered helicobacter pylori-like organisms are present. S/P 4 units of PRBC. HH 8.9/ 27.6. Will add Amoxicillin/Clarithromycin in addition to the PPI x 14 day. Clinically, he is tolerating his diet with no active bleeding. - Nausea, GERD with daily symptoms. S/P EGD as above. PPI. Path + for H. Pylori. Started on tx. - CAD with hx of stent placement, has been on Effient and ASA at home. S/P cardiology evaluation, per cardiology, would be reasonable to stop Effient and ASA at this point secondary to GI bleeding. - HTN, Hyperlipidemia, Arthritis. Per primary. PLAN: - Heart healthy diet - Protonix to 40mg po BID - Amoxicillin 1000mg po BID x 14 days - Clarithromycin 500mg po BID x 14 days - Avoid NSAIDs - Avoid ETOH - Avoid Moon-[place] - Rpt. EGD 8 weeks - Rpt. Colonoscopy 5 years - FU PRISCILLA 2 weeks - Further recommendations to follow based on results of above - Pt seen and examined by Dr. Lopez and myself and this note is written on his behalf (Charu So) Physician Comments patient seen and examined agree with above monitor labs H Pylori treatment f/u with GI (Robin Lopez MD) Charu So Feb 08, 2017 14:02 Robin Lopez MD Feb 08, 2017 14:30
--- NOTE | 2017-03-02 12:54 | PQ ---
Physician Query Response Document PATIENT: VEE HARP : 1950 ADMIT DATE: 02/05/2017 2:14 PM DISCH DATE: 02/08/2017 2:30 PM RESPONDING PROVIDER #: Rito QUERY TEXT: Anemia Type Anemia secondary to GI bleeding is documented in the Medical Record. Please specify the cause (inclu shiloh suspected or probable cause) Such as: -- Due to ACUTE blood loss -- Due to CHRONIC blood loss -- Due to iron deficiency -- Due to chronic disease -- Other, please specify PLEASE CALL ANT[facility]MO IN [facility] @ EXT [phone] FOR ASSISTANCE- THANK YOU The patient's Clinical Indicators include: PER PROGRESS NOTE 02/06/17: Severe anemia secondary to GI bleeding Iron deficiency Give IV Venofer S.P 2 units H and H up to 7 give another unit 02/05/17 HGB=5.6 02/06/17 HGB=7.9 TRANSFUSED 3 UNITS PRBCs Query created by: Antelmo Patel on 02/06/2017 10:41 AM RESPONSE TEXT: Aev Severe Microcytic symptomatic anemia secondary to chronic insidious GI bleeding possible Gastriti s .Peptic ulcer disease Electronically signed by: Juan Bradshaw MD 03/02/2017 12:50 PM
== END 2017-02-08 14:30 | disposition home or self-care (01) | DRG 378 ==
LOC: NEPC 11:42 → NEDA 14:14 → HCIS 17:42
PROVIDERS: ADMIT Internal Medicine; ATTEND Internal Medicine
PROC: 30233N1 Transfusion of Nonautologous Red Blood Cells into Peripheral Vein, Percutaneous Approach (ICD-10-PCS; 2017-02-05)
PROC: 0D5K8ZZ Destruction of Ascending Colon, Via Natural or Artificial Opening Endoscopic (ICD-10-PCS; principal; 2017-02-06 11:00)
PROC: 0DB68ZX Excision of Stomach, Via Natural or Artificial Opening Endoscopic, Diagnostic (ICD-10-PCS; 2017-02-06 11:00)
DX: K55.21 Angiodysplasia of colon with hemorrhage (principal); D62 Acute posthemorrhagic anemia; I44.1 Atrioventricular block, second degree; I25.10 Atherosclerotic heart disease of native coronary artery without angina pectoris; M19.90 Unspecified osteoarthritis, unspecified site; I10 Essential (primary) hypertension; E78.5 Hyperlipidemia, unspecified; K64.8 Other hemorrhoids; K26.9 Duodenal ulcer, unspecified as acute or chronic, without hemorrhage or perforation; K21.0 Gastro-esophageal reflux disease with esophagitis; K29.60 Other gastritis without bleeding; D50.0 Iron deficiency anemia secondary to blood loss (chronic); Z95.5 Presence of coronary angioplasty implant and graft; I25.2 Old myocardial infarction
CPT/HCPCS: 36430; 71010; 80048; 80053; 82607; 82728; 82746; 83540; 83550; 85014; 85018; 85025; 85027; 85610; 85730; 86850; 86900; 86901; 86920; 88305; 88312; 90732; 93005; 93306; C9113; J1756; J1940; J7050; J7120; P9016

== ENCOUNTER 2017-06-18 09:22 | Emergency (ER) | payer MEDICARE, OTHER ==
[~2017-06-18] VITALS: Ht 177.8 cm; Wt 95.0 kg
[~2017-06-18 09:22] MED LIST changes: +AMOX500T PO; -BENZ100 PO; +CARA1TAB6 PO; +CLAR500T PO; +FERR1TAB36 PO; +GABA300C5 PO; -HYDRA25 PO; -LASI20TA PO; -METH500T3 PO; +PANT40TA3 PO; -PRAS10 PO; -PREG75 PO; -RAMI2.5 PO; -ZOFR4TAB3 SL
[2017-06-18 09:24] VITALS: BP 204/88; PULSE 66; RESP 20; TEMP 97.6; O2SAT 96
--- NOTE | 2017-06-18 11:52 | PD ---
HPI Chief Complaint: Edema Time Seen by Provider: 11:49 Travel History International Travel<30 days: No Contact w/Intl Traveler<30days: No Traveled to known affect area: No History of Present Illness HPI Patient is a 66-year-old male presenting to emergency evaluation of swollen feet. Patient states that ongoing for 4-5 days, is worse at the end of the day , improved in the morning. Left is greater than the right. Patient states that in the day hurts to wear his shoes. He denies a history of congestive heart failure, shortness of breath, abdominal pain. He states this has happened in the past and he has attempted to wear compression garments but they did not help. PFSH Past Medical History Hx Anticoagulant Therapy: Yes Arthritis: Yes Asthma: No Heart Rhythm Problems: No Cancer: No High Cholesterol: Yes Chest Pain: Yes COPD: No Coronary Artery Disease: Yes Diabetes: No Diminished Hearing: Yes Endocrine: No Glaucoma: No Genitourinary: No Hepatitis: No Hiatal Hernia: No Hypertension: Yes Immune Disorder: No Musculoskeletal: Yes (knee ankle) Neurologic: No Psychiatric: No Reproductive: No Respiratory: No Sleep Apnea: No Thyroid Disease: No Past Surgical History Appendectomy: Yes Pacemaker: No Other Surgery: Yes (L HAND SURGERY ) Family History Family Hypercholesterolemia: Yes Social History Alcohol Use: Yes (BEER OCC) Tobacco Use: No Substance Use: No Allergies-Medications (Allergen,Severity, Reaction): Coded Allergies: No Known Allergies (Verified , 06/18/17) Reported Meds & Prescriptions Reported Meds & Active Scripts Active Clarithromycin 500 Mg Tab 500 Mg PO BID Amoxicillin 500 Mg Tab 1,000 Mg PO BID 14 Days Iron (Ferrous Sulfate) 325 Mg Tab 325 Mg PO TIDPC Carafate (Sucralfate) 1 Gm Tab 1 Gm PO QID On empty stomach Pantoprazole (Pantoprazole Sodium) 40 Mg Tab 40 Mg PO Q12HR Coreg 3.125 mg (Carvedilol) 3.125 Mg Tab 3.125 Mg PO BID Lipitor 10 mg tab (Atorvastatin) 10 Mg Tab 10 Mg PO HS Reported Gabapentin 300 Mg Cap 300 Mg PO TID [place] 10-325 mg (Hydrocodone-Acetaminophen 10-325 mg) 1 Tab 1 Tab PO Q4-6H PRN Review of Systems Except as stated in HPI: all other systems reviewed are Neg General / Constitutional: No: Fever HENT: No: Headaches Cardiovascular: No: Chest Pain or Discomfort Respiratory: No: Shortness of Breath Genitourinary: No: Dysuria Musculoskeletal: Positive: Myalgias, Edema Physical Exam Narrative GENERAL: Well developed, well nourished, alert male. Resting comfortably in no acute distress. SKIN: Warm and dry. HEAD: Atraumatic. Normocephalic. EYES: Pupils equal and round. No scleral icterus. No injection or drainage. ENT: No nasal bleeding or discharge. Mucous membranes pink and moist. NECK: Trachea midline. No JVD. CARDIOVASCULAR: Regular rate and rhythm. RESPIRATORY: No accessory muscle use. Clear to auscultation. Breath sounds equal bilaterally. GASTROINTESTINAL: Abdomen soft, non-tender, nondistended. Hepatic and splenic margins not palpable. MUSCULOSKELETAL: Extremities without clubbing, cyanosis. No obvious deformities. 1+ edema noted to the left foot/lateral aspect of left ankle. 2+ dorsalis pedal pulses bilaterally. Negative Homans sign bilaterally. No erythema noted. Varicose veins bilaterally NEUROLOGICAL: Awake and alert. No obvious cranial nerve deficits. Motor grossly within normal limits. Five out of 5 muscle strength in the arms and legs. Normal speech. PSYCHIATRIC: Appropriate mood and affect; insight and judgment normal. Data Data Last Documented VS Vital Signs Date Time Temp Pulse Resp B/P Pulse Ox O2 Delivery O2 Flow Rate FiO2 06/18/17 12:30 97.8 52 14 191/87 97 06/18/17 09:24 Room Air Orders Complete Blood Count With Diff (06/18/17 11:38) Comprehensive Metabolic Panel (06/18/17 11:38) B-Type Natriuretic Peptide (06/18/17 11:38) Iv Access Insert/Monitor (06/18/17 11:38) Labs Laboratory Tests Test 06/18/17 11:49 White Blood Count 8.0 TH/MM3 Red Blood Count 4.74 MIL/MM3 Hemoglobin 14.6 GM/DL Hematocrit 42.2 % Mean Corpuscular Volume 89.1 FL Mean Corpuscular Hemoglobin 30.9 PG Mean Corpuscular Hemoglobin 34.7 % Concent Red Cell Distribution Width 14.6 % Platelet Count 159 TH/MM3 Mean Platelet Volume 9.2 FL Neutrophils (%) (Auto) 54.3 % Lymphocytes (%) (Auto) 31.0 % Monocytes (%) (Auto) 9.7 % Eosinophils (%) (Auto) 3.7 % Basophils (%) (Auto) 1.3 % Neutrophils # (Auto) 4.3 TH/MM3 Lymphocytes # (Auto) 2.5 TH/MM3 Monocytes # (Auto) 0.8 TH/MM3 Eosinophils # (Auto) 0.3 TH/MM3 Basophils # (Auto) 0.1 TH/MM3 CBC Comment DIFF FINAL Differential Comment Sodium Level 141 MEQ/L Potassium Level 4.5 MEQ/L Chloride Level 105 MEQ/L Carbon Dioxide Level 26.3 MEQ/L Anion Gap 10 MEQ/L Blood Urea Nitrogen 16 MG/DL Creatinine 0.75 MG/DL Estimat Glomerular Filtration 104 ML/MIN Rate Random Glucose 99 MG/DL Calcium Level 9.4 MG/DL Total Bilirubin 0.7 MG/DL Aspartate Amino Transf 38 U/L (AST/SGOT) Alanine Aminotransferase 44 U/L (ALT/SGPT) Alkaline Phosphatase 66 U/L B-Type Natriuretic Peptide 56 PG/ML Total Protein 7.5 GM/DL Albumin 4.0 GM/DL [facility] Medical Decision Making Medical Screen Exam Complete: Yes Emergency Medical Condition: Yes Interpretation(s) Laboratory Tests Test 06/18/17 11:49 White Blood Count 8.0 TH/MM3 Red Blood Count 4.74 MIL/MM3 Hemoglobin 14.6 GM/DL Hematocrit 42.2 % Mean Corpuscular Volume 89.1 FL Mean Corpuscular Hemoglobin 30.9 PG Mean Corpuscular Hemoglobin 34.7 % Concent Red Cell Distribution Width 14.6 % Platelet Count 159 TH/MM3 Mean Platelet Volume 9.2 FL Neutrophils (%) (Auto) 54.3 % Lymphocytes (%) (Auto) 31.0 % Monocytes (%) (Auto) 9.7 % Eosinophils (%) (Auto) 3.7 % Basophils (%) (Auto) 1.3 % Neutrophils # (Auto) 4.3 TH/MM3 Lymphocytes # (Auto) 2.5 TH/MM3 Monocytes # (Auto) 0.8 TH/MM3 Eosinophils # (Auto) 0.3 TH/MM3 Basophils # (Auto) 0.1 TH/MM3 CBC Comment DIFF FINAL Differential Comment Sodium Level 141 MEQ/L Potassium Level 4.5 MEQ/L Chloride Level 105 MEQ/L Carbon Dioxide Level 26.3 MEQ/L Anion Gap 10 MEQ/L Blood Urea Nitrogen 16 MG/DL Creatinine 0.75 MG/DL Estimat Glomerular Filtration 104 ML/MIN Rate Random Glucose 99 MG/DL Calcium Level 9.4 MG/DL Total Bilirubin 0.7 MG/DL Aspartate Amino Transf 38 U/L (AST/SGOT) Alanine Aminotransferase 44 U/L (ALT/SGPT) Alkaline Phosphatase 66 U/L B-Type Natriuretic Peptide 56 PG/ML Total Protein 7.5 GM/DL Albumin 4.0 GM/DL Vital Signs Date Time Temp Pulse Resp B/P Pulse Ox O2 Delivery O2 Flow Rate FiO2 06/18/17 09:24 97.6 66 20 204/88 96 Room Air Differential Diagnosis Peripheral edema versus metabolic Abnormality versus less likely CHF or DVT Narrative Course Patient is a 66-year-old male presenting for evaluation of peripheral edema. Patient states it was ongoing for 3-4 days. He does report a history of the same. He denied any history of congestive heart failure. He has had no shortness of breath or weight gain. Patient was hypertensive on arrival, blood pressure was reassessed after patient had been resting comfortably for approximately 30 minutes and blood pressure continued to be elevated. Labs Ordered and pending. IV access established, patient placed on telemetry monitoring. CBC, chemistry, BNP reviewed, no acute abnormalities noted. Patient was given Lasix 40 mg IV 1 dose. He was encouraged to obtain compression garments and use daily especially if he is going to be on his feet all day. He was advised to follow-up with his primary doctor. Patient is to continue home medications as prescribed. He was advised to return to regarding the any for any new or worsening symptoms. Patient verbalized understanding of instructions. Patient stable for discharge. Diagnosis Primary Impression: Mild peripheral edema Referrals: Primary Care Physician 2 days Patient Instructions: General Instructions, Leg Edema (ED) Additional Instructions: Wear compression garments Elevate extremities above the level of the heart to help with reduction in swelling. Follow-up with your primary doctor Decreased sodium intake Return to emergency department for any new or worsening symptoms Med/Other Pt SpecificInfo: No Change to Meds Scripts Medical Compression Elastic Socks 1 Mis Mis #1 Ea .route As Directed Prov:Sisi Nails 06/18/17 Disposition: 01 DISCHARGE HOME Condition: Stable Sisi Nails Jun 18, 2017 11:52
[2017-06-18 12:04] LABS: AUTOMATED NEUTROPHIL # 4.3 TH/MM3 (1.8-7.7); BASOPHIL # 0.1 TH/MM3 (0-0.2); BASOPHIL % 1.3 % (0.0-2.0); EOSINOPHIL # 0.3 TH/MM3 (0-0.4); EOSINOPHIL % 3.7 % (0.0-4.0); HEMATOCRIT 42.2 % (39.0-51.0); HEMO FLAGS DIFF FINAL; LYMPHOCYTE # 2.5 TH/MM3 (1.0-4.8); MEAN CELL VOLUME 89.1 FL (80.0-100.0); MEAN CORPUSCULAR HEMOGLOBIN 30.9 PG (27.0-34.0); MEAN CORPUSCULAR HGB CONC 34.7 % (32.0-36.0); MONO % 9.7 % (0.0-8.0); NEUT % 54.3 % (16.0-70.0); PLATELET COUNT 159 TH/MM3 (150-450); RED BLOOD COUNT 4.74 MIL/MM3 (4.50-5.90); RED CELL DISTRIBUTION WIDTH 14.6 % (11.6-17.2)
[2017-06-18 12:30] VITALS: BP 191/87; PULSE 52; RESP 14; TEMP 97.8; O2SAT 97
[2017-06-18 12:41] LABS: ALKALINE PHOSPHATASE 66 U/L (45-117); TOTAL BILIRUBIN ADULT 0.7 MG/DL (0.2-1.0)
[2017-06-18 12:43] LABS: ALT (GPT) 44 U/L (12-78); ANION GAP 10 MEQ/L (5-15); AST (GOT) 38 U/L (15-37); BICARBONATE 26.3 MEQ/L (21.0-32.0); BLOOD UREA NITROGEN 16 MG/DL (7-18); CHLORIDE 105 MEQ/L (98-107); GLOMERULAR FILTRATION RATE 104 ML/MIN (>89); POTASSIUM 4.5 MEQ/L (3.5-5.1); SODIUM (NA) 141 MEQ/L (136-145)
[2017-06-18] MEDS ORDERED: FUROSEMIDE 40 MG/4 ML VIAL IV PUSH ONE (13:00)
[2017-06-18] MEDS ORDERED: MEDICAL COMPRES1 MI3 (13:01)
== END 2017-06-18 13:22 | disposition home or self-care (01) ==
LOC: NEPD 09:22
DX: R60.9 Edema, unspecified (principal); I10 Essential (primary) hypertension; I25.10 Atherosclerotic heart disease of native coronary artery without angina pectoris; E78.00 Pure hypercholesterolemia, unspecified; Z79.899 Other long term (current) drug therapy
CPT/HCPCS: 80053; 83880; 85025; 99283

== ENCOUNTER 2017-07-07 13:19 | Emergency (ER) | payer OTHER ==
[~2017-07-07] VITALS: Ht 177.8 cm; Wt 95.0 kg
[~2017-07-07 13:19] MED LIST changes: +MEDICAL COMPRES1 MI3
[2017-07-07 13:21] VITALS: BP 178/79; PULSE 67; RESP 16; TEMP 97.8; O2SAT 98
--- NOTE | 2017-07-07 13:25 | PD ---
Physical Exam Time Seen by Provider: 13:23 Narrative 66yo M c/o L ankle swelling x couple weeks. Denies injury. Seen June 18 for BLE peripheral edema. Patient seen in triage. VS reviewed. Awaiting bed placement. Data Data Last Documented VS Vital Signs Date Time Temp Pulse Resp B/P Pulse Ox O2 Delivery O2 Flow Rate FiO2 07/07/17 13:21 97.8 67 16 178/79 98 Room Air MDM Supervised Visit with MARGARITO: Jade Ingram Jul 07, 2017 13:25
--- NOTE | 2017-07-07 13:50 | PD ---
HPI Chief Complaint: Edema Time Seen by Provider: 13:47 Travel History International Travel<30 days: No Contact w/Intl Traveler<30days: No Traveled to known affect area: No History of Present Illness HPI 66-year-old male presents the emergency department with ongoing left lateral ankle pain and swelling over the past couple of weeks. Patient denies any specific injury. He was recently seen for Prelone edema for which she was placed on a diuretic with improvement. He continues to have recurrent turning of the left ankle while he is ambulating over the past couple of weeks. He has no numbness, tingling, or other symptoms. Patient has not been taking any medications but due to the recurrent nature he felt that needed to be checked out. He called his primary care physician and was referred here for x-rays and treatment. Pain is currently about a 3 out of 10. He has no known drug allergies. PFSH Past Medical History Hx Anticoagulant Therapy: Yes Arthritis: Yes Asthma: No Heart Rhythm Problems: No Cancer: No Cardiovascular Problems: Yes (STENTS) High Cholesterol: Yes Chest Pain: Yes COPD: No Coronary Artery Disease: Yes Diabetes: No Diminished Hearing: Yes Endocrine: No Glaucoma: No Genitourinary: No Hepatitis: No Hiatal Hernia: No Hypertension: Yes Immune Disorder: No Musculoskeletal: Yes (knee ankle) Neurologic: No Psychiatric: No Reproductive: No Respiratory: No Sleep Apnea: No Thyroid Disease: No Past Surgical History Appendectomy: Yes Pacemaker: No Other Surgery: Yes (L HAND SURGERY ) Family History Family Hypercholesterolemia: Yes Social History Alcohol Use: Yes (BEER OCC) Tobacco Use: No Substance Use: No Allergies-Medications (Allergen,Severity, Reaction): Coded Allergies: No Known Allergies (Verified , 06/18/17) Reported Meds & Prescriptions Reported Meds & Active Scripts Active Medical Compression Elastic Socks 1 Mis Mis 1 Ea .ROUTE DIRECTED Clarithromycin 500 Mg Tab 500 Mg PO BID Amoxicillin 500 Mg Tab 1,000 Mg PO BID 14 Days Iron (Ferrous Sulfate) 325 Mg Tab 325 Mg PO TIDPC Carafate (Sucralfate) 1 Gm Tab 1 Gm PO QID On empty stomach Pantoprazole (Pantoprazole Sodium) 40 Mg Tab 40 Mg PO Q12HR Coreg 3.125 mg (Carvedilol) 3.125 Mg Tab 3.125 Mg PO BID Lipitor 10 mg tab (Atorvastatin) 10 Mg Tab 10 Mg PO HS Reported Gabapentin 300 Mg Cap 300 Mg PO TID [place] 10-325 mg (Hydrocodone-Acetaminophen 10-325 mg) 1 Tab 1 Tab PO Q4-6H PRN Review of Systems Except as stated in HPI: all other systems reviewed are Neg General / Constitutional: No: Fever Eyes: No: Visual changes HENT: No: Headaches Cardiovascular: No: Chest Pain or Discomfort Respiratory: No: Shortness of Breath Gastrointestinal: No: Abdominal Pain Genitourinary: No: Dysuria Musculoskeletal: Positive: Arthralgias, Limited ROM, Pain, No: Myalgias Skin: No Rash Neurologic: No: Weakness Psychiatric: No: Depression Endocrine: No: Polydipsia Hematologic/Lymphatic: No: Easy Bruising Physical Exam Narrative GENERAL: No acute distress. SKIN: Warm and dry. HEAD: Atraumatic. Normocephalic. EYES: Pupils equal and round. No scleral icterus. No injection or drainage. ENT: No nasal bleeding or discharge. Mucous membranes pink and moist. NECK: Trachea midline. Supple and nontender. CARDIOVASCULAR: Regular rate and rhythm. RESPIRATORY: No accessory muscle use. Clear to auscultation. Breath sounds equal bilaterally. MUSCULOSKELETAL: Extremities without clubbing, cyanosis, or edema. Patient is noted to have multiple hammertoes to both feet. Left ankle does have moderate swelling over the lateral malleolus without obvious deformity. Pain is mild to moderate. Range of motion is somewhat limited secondary to pain. Range of motion is full. There is no crepitus. The foot itself is nontender and normal. NEUROLOGICAL: Awake and alert. No obvious cranial nerve deficits. Motor grossly within normal limits. Five out of 5 muscle strength in the arms and legs. Normal speech. PSYCHIATRIC: Appropriate mood and affect; insight and judgment normal. Data Data Last Documented VS Vital Signs Date Time Temp Pulse Resp B/P Pulse Ox O2 Delivery O2 Flow Rate FiO2 07/07/17 13:21 97.8 67 16 178/79 98 Room Air Orders Ankle, Complete ([id number]) (07/07/17 13:25) Splint Or Brace Apply/Monitor (07/07/17 14:09) [facility] Medical Decision Making Medical Screen Exam Complete: Yes Emergency Medical Condition: Yes Differential Diagnosis Left ankle sprain. Left ankle laxity. Arthritis. Gout. Narrative Course X-ray of the left ankle is obtained. X-ray show significant arthritis but no fracture. Patient is placed in a ankle stirrup splint for stability. Patient will take prednisone 20 mg twice a day 7 days. Patient take Tylenol as well as needed. Patient should wear the ankle stirrup splint while ambulating at all times. Follow-up with Dr. Garza, card player, recommended. Diagnosis Primary Impression: Left lateral ankle pain Additional Impression: Instability of left ankle joint Referrals: Denys Garza DPM call for appointment Patient Instructions: Ankle Exercises (GEN), Ankle Sprain (ED), Ankle Stirrup Splint (ED), General Instructions Additional Instructions: X-ray show significant arthritis but no fracture. Patient is placed in a ankle stirrup splint for stability. Patient will take prednisone 20 mg twice a day 7 days. Patient take Tylenol as well as needed. Patient should wear the ankle stirrup splint while ambulating at all times. Follow-up with Dr. Garza, card player, recommended. Med/Other Pt SpecificInfo: Prescription(s) given Disposition: 01 DISCHARGE HOME Condition: Stable Aly Miner Jul 07, 2017 13:50
[2017-07-07] MEDS ORDERED: PRED20 PO (14:15)
--- NOTE | 2017-07-07 14:23 | RADRPT ---
EXAM DATE/TIME: 07/07/2017 14:04 [place] COMPARISON: CHEST SINGLE AP, February 05, 2017, 18:22. INDICATIONS : Left ankle pain and swelling, no injury. MEDICAL HISTORY : None. SURGICAL HISTORY : None. ENCOUNTER: Initial ACUITY: 1 day PAIN SCORE: 8/10 LOCATION: Left lateral ankle FINDINGS: The exam demonstrates osteoarthritic changes within the ankle mortise. There is no acute fracture. There is fairly diffuse soft tissue swelling around the ankle. CONCLUSION: Soft tissue swelling. No acute fracture. Incidental note made of atherosclerotic plaquing in the post erior tibial. Shant Orosco MD on July 07, 2017 at 14:21 Board Certified Radiologist. This report was verified electronically.
== END 2017-07-07 14:48 | disposition home or self-care (01) ==
LOC: NEPK 13:19
DX: M25.572 Pain in left ankle and joints of left foot (principal)
CPT/HCPCS: 73610; 99283; L1906

== ENCOUNTER 2017-08-03 11:06 | Emergency (ER) | payer OTHER ==
[~2017-08-03] VITALS: Ht 177.8 cm; Wt 95.0 kg
[~2017-08-03 11:06] MED LIST changes: +PRED20 PO
[2017-08-03 11:08] VITALS: BP 187/117; PULSE 72; RESP 20; TEMP 98.1; O2SAT 96
[2017-08-03 11:11] VITALS: BP 138/77
[2017-08-03] MEDS ORDERED: AMLO10TA2 PO (11:24)
[2017-08-03] MEDS ORDERED: HYDR-3583 PO (11:24)
[2017-08-03] MEDS ORDERED: FURO40TA PO (11:24)
[2017-08-03] MEDS ORDERED: POTA-163 PO (11:24)
[2017-08-03] MEDS ORDERED: NAPR500T PO (11:24)
[2017-08-03] MEDS ORDERED: CARV12.52 PO (11:24)
--- NOTE | 2017-08-03 12:26 | PD ---
HPI Chief Complaint: Edema Time Seen by Provider: 11:54 Travel History International Travel<30 days: No Contact w/Intl Traveler<30days: No Traveled to known affect area: No History of Present Illness HPI This patient complains of swelling in his feet and ankles and lower legs. He's had this problem for 7-8 months. He's been here multiple times for it. He is taking Lasix daily. He does have compression stockings although doesn't wear them much anymore. He is not short of breath or having fever or chest pain. Symptoms severity is mild PFSH Past Medical History Hx Anticoagulant Therapy: Yes Arthritis: Yes Asthma: No Heart Rhythm Problems: No Cancer: No Cardiovascular Problems: Yes (SEVERAL STENTS ) High Cholesterol: Yes Chest Pain: Yes Congestive Heart Failure: Yes COPD: No Coronary Artery Disease: Yes Diabetes: No Diminished Hearing: Yes Endocrine: No Glaucoma: No Genitourinary: No Hepatitis: No Hiatal Hernia: No Hypertension: Yes Immune Disorder: No Musculoskeletal: Yes (knee ankle) Neurologic: No Psychiatric: No Reproductive: No Respiratory: No Sleep Apnea: No Thyroid Disease: No ?: Not Past Surgical History Appendectomy: Yes Pacemaker: No Other Surgery: Yes (L HAND SURGERY ) Family History Family Hypercholesterolemia: Yes Social History Alcohol Use: Yes (BEER OCC) Tobacco Use: No Substance Use: No Allergies-Medications (Allergen,Severity, Reaction): Coded Allergies: No Known Allergies (Verified , 07/07/17) Reported Meds & Prescriptions Reported Meds & Active Scripts Active Reported Amlodipine (Amlodipine Besylate) 10 Mg Tab 10 Mg PO DAILY Hydrocodone-Acetaminophen 10-325 mg Tab 1 Tab PO Q6H PRN Potassium Chloride ER (Potassium Chloride) 20 Meq Tab 20 Meq PO DAILY Naproxen 500 Mg Tab 500 Mg PO BID Carvedilol 12.5 Mg Tab 12.5 Mg PO BID Furosemide 40 Mg Tab 40 Mg PO DAILY Review of Systems General / Constitutional: No: Fever HENT: No: Headaches Cardiovascular: No: Chest Pain or Discomfort Respiratory: No: Cough Physical Exam Narrative GENERAL: Well-nourished, well-developed patient in no apparent distress. SKIN: Focused skin assessment reveals no rash and nodules. Skin is Warm and dry. HEAD: Atraumatic. Normocephalic. EYES: Pupils equal and round. No scleral icterus. No injection or drainage. ENT: No nasal bleeding or discharge. Mucous membranes pink and moist. NECK: Trachea midline. No JVD. CARDIOVASCULAR: Regular rate and rhythm. No murmur appreciated. RESPIRATORY: No accessory muscle use. Clear to auscultation. Breath sounds equal bilaterally. GASTROINTESTINAL: Abdomen soft, non-tender, nondistended. Hepatic and splenic margins not palpable. MUSCULOSKELETAL: No obvious deformities. No clubbing. No cyanosis. Symmetric edema the feet ankles and lower legs. NEUROLOGICAL: Awake and alert. No obvious cranial nerve deficits. Motor grossly within normal limits. Normal speech. PSYCHIATRIC: Appropriate mood and affect; insight and judgment normal. Data Data Last Documented VS Vital Signs Date Time Temp Pulse Resp B/P (MAP) Pulse Ox O2 Delivery O2 Flow Rate FiO2 08/03/17 11:11 138/77 (97) 08/03/17 11:08 98.1 72 20 96 Room Air [facility] Medical Decision Making Medical Screen Exam Complete: Yes Emergency Medical Condition: Yes Medical Record Reviewed: Yes Differential Diagnosis Renal failure, liver failure, CHF Narrative Course I have reviewed the patient's electronic medical record. Reviewed his lab studies from May 2017 which were normal Patient is complaining of edema which is a chronic problem. No indication for emergent studies. He should elevate his legs and use low-sodium diet and wear knee-high compression stockings and continue his Lasix. He has an appointment with his physician in 5 days Diagnosis Primary Impression: Bilateral lower extremity edema Additional Instructions: The patient was advised to follow up with their physician and return if they worsen. Elevate legs Use low-sodium diet Wear knee-high compression stockings Continue diuretics Med/Other Pt SpecificInfo: Other Disposition: 01 DISCHARGE HOME Condition: Stable Raul Sebastian MD Aug 03, 2017 12:26
== END 2017-08-03 12:35 | disposition home or self-care (01) ==
LOC: NEPD 11:06
DX: M79.89 Other specified soft tissue disorders (principal)
CPT/HCPCS: 99282

== ENCOUNTER 2018-02-02 13:13 | Emergency (ER) | payer OTHER ==
[~2018-02-02] VITALS: Ht 177.8 cm; Wt 95.5 kg
[~2018-02-02 13:13] MED LIST changes: +AMLO10TA2 PO; -AMOX500T PO; -ATOR10 PO; -CARA1TAB6 PO; +CARV12.52 PO; -CARV3.125 PO; -CLAR500T PO; -FERR1TAB36 PO; +FURO40TA PO; -GABA300C5 PO; +HYDR-3583 PO; -MEDICAL COMPRES1 MI3; +NAPR500T2 PO; -NORC10TA2 PO; -PANT40TA3 PO; +POTA-163 PO; -PRED20 PO
[2018-02-02 13:43] VITALS: BP 177/87; PULSE 73; RESP 18; TEMP 98.3; O2SAT 96
[2018-02-02 15:51] LABS: AUTOMATED NEUTROPHIL # 5.3 TH/MM3 (1.8-7.7); BASOPHIL # 0.3 TH/MM3 (0-0.2); BASOPHIL % 3.6 % (0.0-2.0); EOSINOPHIL # 0.5 TH/MM3 (0-0.4); EOSINOPHIL % 5.6 % (0.0-4.0); HEMATOCRIT 45.1 % (39.0-51.0); HEMOGLOBIN 15.8 GM/DL (13.0-17.0); LYMPH % 22.5 % (9.0-44.0); MEAN CELL VOLUME 90.2 FL (80.0-100.0); MEAN CORPUSCULAR HEMOGLOBIN 31.6 PG (27.0-34.0); MEAN PLATELET VOLUME 8.7 FL (7.0-11.0); MONO % 9.4 % (0.0-8.0); MONOCYTE # 0.8 TH/MM3 (0-0.9); NEUT % 58.9 % (16.0-70.0); PLATELET COUNT 188 TH/MM3 (150-450); WHITE BLOOD COUNT 8.9 TH/MM3 (4.0-11.0)
[2018-02-02 15:59] LABS: PROTHROMBIN TIME - PATIENT 10.4 SEC (9.8-11.6)
[2018-02-02 16:08] LABS: ALBUMIN 3.8 GM/DL (3.4-5.0); ALT (GPT) 50 U/L (12-78); AST (GOT) 36 U/L (15-37); BICARBONATE 27.7 MEQ/L (21.0-32.0); BLOOD UREA NITROGEN 9 MG/DL (7-18); CHLORIDE 103 MEQ/L (98-107); CREATININE 0.82 MG/DL (0.60-1.30); GLOMERULAR FILTRATION RATE 94 ML/MIN (>89); GLUCOSE,RANDOM 112 MG/DL (74-106); SODIUM (NA) 138 MEQ/L (136-145)
[2018-02-02 16:10] LABS: ALKALINE PHOSPHATASE 77 U/L (45-117); TOTAL BILIRUBIN ADULT 0.6 MG/DL (0.2-1.0); TOTAL PROTEIN 7.7 GM/DL (6.4-8.2)
[2018-02-02] MEDS ORDERED: ATOR40TA16 PO (17:02)
[2018-02-02] MEDS ORDERED: NORT10CA PO (17:02)
[2018-02-02 17:03] VITALS: BP 203/95; PULSE 64; RESP 18; O2SAT 96
[2018-02-02] MEDS ORDERED: CEPH-460 PO (17:18)
--- NOTE | 2018-02-02 17:18 | PD ---
HPI Chief Complaint: Edema Time Seen by Provider: 17:09 Travel History International Travel<30 days: No Contact w/Intl Traveler<30days: No Traveled to known affect area: No History of Present Illness HPI 67-year-old male here for evaluation of bilateral lower extremity edema and pruritus to his legs with wounds from scratching. Patient reports that his symptoms have been going on for about a week. He tells me that his orthopedist plans on performing knee surgery, however he will not do so with his leg appearance today. No chest pain or dyspnea. No fevers or chills. Patient has been here in the past for lower extremity edema PFSH Past Medical History Hx Anticoagulant Therapy: Yes Arthritis: Yes Asthma: No Heart Rhythm Problems: No Cancer: No Cardiac Catheterization: Yes Cardiovascular Problems: Yes High Cholesterol: Yes Chest Pain: Yes Congestive Heart Failure: Yes COPD: No Coronary Artery Disease: Yes Diabetes: No Diminished Hearing: Yes Endocrine: No Glaucoma: No Genitourinary: No Hepatitis: No Hiatal Hernia: No Hypertension: Yes Immune Disorder: No Musculoskeletal: Yes Neurologic: No Psychiatric: No Reproductive: No Respiratory: No Sleep Apnea: No Thyroid Disease: No Past Surgical History Appendectomy: Yes Coronary Stent: Yes (X 2) Pacemaker: No Other Surgery: Yes (L HAND SURGERY ) Family History Family Hypercholesterolemia: Yes Social History Alcohol Use: Yes (BEER OCC) Tobacco Use: No Substance Use: No Allergies-Medications (Allergen,Severity, Reaction): Coded Allergies: No Known Allergies (Verified Adverse Reaction, Unknown, 02/02/18) Reported Meds & Prescriptions Reported Meds & Active Scripts Active Reported Atorvastatin (Atorvastatin Calcium) 40 Mg Tab Unknown Dose PO DAILY Nortriptyline (Nortriptyline HCl) 10 Mg Cap Unknown Dose PO DAILY Amlodipine (Amlodipine Besylate) 10 Mg Tab 10 Mg PO DAILY Hydrocodone-Acetaminophen 10-325 mg Tab 1 Tab PO Q6H PRN Potassium Chloride ER (Potassium Chloride) 20 Meq Tab 20 Meq PO DAILY Naproxen 500 Mg Tab 500 Mg PO BID Carvedilol 12.5 Mg Tab 25 Mg PO BID Furosemide 40 Mg Tab 40 Mg PO DAILY Review of Systems Except as stated in HPI: all other systems reviewed are Neg Physical Exam Narrative GENERAL: Well-developed, well-nourished, comfortable, no apparent distress. SKIN: Focused skin assessment warm/dry. Bilateral lower extremities with several excoriations from scratching himself with mild surrounding erythema, no crepitus, no purulence. HEAD: Atraumatic. Normocephalic. EYES: Pupils equal and round. No scleral icterus. No injection or drainage. ENT: Mucous membranes pink and moist. NECK: Trachea midline. No JVD. CARDIOVASCULAR: Regular rate and rhythm. Bilateral dorsalis pedis pulses are brisk and equal. RESPIRATORY: No accessory muscle use. Clear to auscultation. Breath sounds equal bilaterally. GASTROINTESTINAL: Abdomen soft, non-tender, nondistended. MUSCULOSKELETAL: No obvious deformities. No clubbing. No cyanosis. Mild bilateral lower extremity edema with skin exam as above. NEUROLOGICAL: Awake and alert. No obvious cranial nerve deficits. Motor grossly within normal limits. Normal speech. PSYCHIATRIC: Appropriate mood and affect; insight and judgment normal. Data Data Last Documented VS Vital Signs Date Time Temp Pulse Resp B/P (MAP) Pulse Ox O2 Delivery O2 Flow Rate FiO2 02/02/18 17:03 64 18 203/95 (131) 96 Room Air 02/02/18 13:43 98.3 Orders Orders Complete Blood Count With Diff (02/02/18 13:45) Comprehensive Metabolic Panel (02/02/18 13:45) Prothrombin Time / Inr (Pt) (02/02/18 13:45) Act Partial Throm Time (Ptt) (02/02/18 13:45) B-Type Natriuretic Peptide (02/02/18 13:45) Labs Laboratory Tests Test 02/02/18 15:00 White Blood Count 8.9 TH/MM3 Red Blood Count 5.00 MIL/MM3 Hemoglobin 15.8 GM/DL Hematocrit 45.1 % Mean Corpuscular Volume 90.2 FL Mean Corpuscular Hemoglobin 31.6 PG Mean Corpuscular Hemoglobin Concent 35.0 % Red Cell Distribution Width 13.0 % Platelet Count 188 TH/MM3 Mean Platelet Volume 8.7 FL Neutrophils (%) (Auto) 58.9 % Lymphocytes (%) (Auto) 22.5 % Monocytes (%) (Auto) 9.4 % Eosinophils (%) (Auto) 5.6 % Basophils (%) (Auto) 3.6 % Neutrophils # (Auto) 5.3 TH/MM3 Lymphocytes # (Auto) 2.0 TH/MM3 Monocytes # (Auto) 0.8 TH/MM3 Eosinophils # (Auto) 0.5 TH/MM3 Basophils # (Auto) 0.3 TH/MM3 CBC Comment DIFF FINAL Differential Comment Prothrombin Time 10.4 SEC Prothromb Time International Ratio 1.0 RATIO Activated Partial Thromboplast Time 25.1 SEC Blood Urea Nitrogen 9 MG/DL Creatinine 0.82 MG/DL Random Glucose 112 MG/DL Total Protein 7.7 GM/DL Albumin 3.8 GM/DL Calcium Level 9.0 MG/DL Alkaline Phosphatase 77 U/L Aspartate Amino Transf (AST/SGOT) 36 U/L Alanine Aminotransferase (ALT/SGPT) 50 U/L Total Bilirubin 0.6 MG/DL Sodium Level 138 MEQ/L Potassium Level 4.0 MEQ/L Chloride Level 103 MEQ/L Carbon Dioxide Level 27.7 MEQ/L Anion Gap 7 MEQ/L Estimat Glomerular Filtration Rate 94 ML/MIN B-Type Natriuretic Peptide 39 PG/ML [facility] Medical Decision Making Medical Screen Exam Complete: Yes Emergency Medical Condition: Yes Medical Record Reviewed: Yes Differential Diagnosis Cellulitis, chronic edema, venous insufficiency Narrative Course Vital signs reviewed. CBC: WBC 8.9, hemoglobin 15.8, hematocrit 45.1, platelets 188. CMP is unremarkable. Lipase is 39. Patient is overall comfortable in no acute distress. He does have mild bilateral lower extremity edema with excoriations that appear to be self- inflicted from scratching with mild surrounding cellulitis. Plan is to start him on Keflex. He has an appointment with his primary care physician in 1 week. He was advised on when to return to the emergency department. He verbalizes understanding and agreement with plan. Diagnosis Primary Impression: Bilateral lower leg cellulitis Additional Impression: Bilateral lower extremity edema Referrals: Primary Care Physician 1 week Additional Instructions: Follow-up with your primary care physician this week. Take antibiotic as prescribed. Apply calamine lotion. Take Benadryl for itching. Return to the emergency department for worsening symptoms or any other concerns. Scripts Cephalexin (Keflex) 500 Mg Cap 500 MG PO Q8H for Infection, #30 CAP 0 Refills Prov: Juwan Rucker MD 02/02/18 Disposition: 01 DISCHARGE HOME Condition: Stable Juwan Rucker MD Feb 02, 2018 17:18
== END 2018-02-02 18:30 | disposition home or self-care (01) ==
LOC: NEPD 13:13
DX: L03.116 Cellulitis of left lower limb (principal); L03.115 Cellulitis of right lower limb; R60.0 Localized edema; M19.90 Unspecified osteoarthritis, unspecified site; E78.00 Pure hypercholesterolemia, unspecified; I11.0 Hypertensive heart disease with heart failure; I50.9 Heart failure, unspecified; I25.10 Atherosclerotic heart disease of native coronary artery without angina pectoris; Z95.5 Presence of coronary angioplasty implant and graft
CPT/HCPCS: 80053; 83880; 85025; 85610; 85730; 99283